=== PATIENT | female | born 1990 | race Caucasian/White ===

== ENCOUNTER 2016-08-05 17:59 | Observation (INO) | payer OTHER ==
[2016-08-05] MEDS ORDERED: diphenhydrAMINE 50 MG/ML 1 ML VIAL IVP STA (19:38)
[2016-08-05] MEDS ORDERED: SODIUM CHLORIDE 0.9% 2,000 ML IV STA (19:38)
[2016-08-05] MEDS ORDERED: METOCLOPRAMIDE 5 MG/ML 2 ML VIAL IVP STA (19:38)
[2016-08-05] MEDS ORDERED: KETOROLAC 30 MG/ML 1 ML VIAL IVP STA (19:39)
[2016-08-05 20:14] LABS: Basophils % (A) 0 %; CH 30.1; CHCM 35.4; Eosinophils % (A) 0 %; HCT 40.7 % (34.0-46.0); HDW 2.54; HGB 14.2 gm/dL (11.4-16.0); Luc # (Auto) 0.17; Luc % (Auto) 1; Lymphocytes # (A) 2.3 k/uL (1.0-4.8); Lymphocytes % (A) 19 %; MCH 29.7 pg (25.0-35.0); MCHC 34.9 g/dL (31.0-37.0); Mean Platelet Volume 6.8; Monocytes # (A) 0.4 k/uL (0-1.0); Monocytes % (A) 3 %; Neutrophils % (A) 76 %; RBC 4.78 m/uL (3.80-5.40); RDW 13.2 % (11.5-15.5); WBC 11.9 k/uL (3.8-10.6); WBC (Perox) 12.05
[2016-08-05 20:23] LABS: Amorphous Sediment,Urine Rare /hpf; Appearance,Urine Cloudy (Clear); Bilirubin,Urine Negative (Negative); Glucose,Urine (UA) Negative (Negative); Ketones,Urine 1+ (Negative); Leukocyte Esterase,Urine Negative (Negative); Mucus,Urine Occasional /hpf; Nitrite,Urine Negative (Negative); PH, Urine 5.5 (5.0-8.0); Particle Count 4897; Protein,Urine Trace (Negative); RBC,Urine <1 /hpf (0-5); Specific Gravity,Urine 1.018 (1.001-1.035); Squamous Epithelial Cell,Urine 1 /hpf (0-4); UA Billing (MACRO vs. MICRO) MICRO; Urobilinogen,Urine <2.0 mg/dL (<2.0); WBC,Urine 2 /hpf (0-5)
[2016-08-05 20:29] LABS: ALT 28 U/L (9-52); AST 28 U/L (14-36); Alkaline Phosphatase 59 U/L (38-126); Amylase 80 U/L (30-110); Anion Gap 12 mmol/L; Blood Urea Nitrogen 12 mg/dL (7-17); Calcium 9.5 mg/dL (8.4-10.2); Carbon Dioxide 22 mmol/L (22-30); Chloride 106 mmol/L (98-107); Glucose 92 mg/dL (74-99); Non-African American GFR(MDRD) >60 (>60 ml/min/1.73 sqM); Potassium 4.2 mmol/L (3.5-5.1); Sodium 140 mmol/L (137-145); Total Bilirubin 0.6 mg/dL (0.2-1.3); Total Protein 7.5 g/dL (6.3-8.2)
[2016-08-05] MEDS ORDERED: LORazepam 2 MG/ML SYRINGE IV STA (20:31)
--- NOTE | 2016-08-05 20:32 | ED ---
Nausea/Vomiting/Diarrhea HPI - General Chief complaint: Nausea/Vomiting/Diarrhea Stated complaint: Vomiting Time Seen by Provider: 08/05/16 19:29 Source: patient, RN notes reviewed, old records reviewed Mode of arrival: ambulatory Limitations: no limitations - History of Present Illness Initial comments: This is a 25-year-old female presenting to emergency Department with chief complaint of a few episodes of vomiting today, fever and chills, headache, and productive cough. Patient's mother reports that she was very sleepy today and had multiple episodes of vomiting last night. Patient's mother reports that she 's had 2 episodes of seizure like episodes at 7 AM at 9am today. Patient's mother reports that she's ever had a seizure before. Patient denies any drug or alcohol use. Patient reports that she just feels very tired and has a headache. Patient states that she's had no head injury or trauma. - Related Data Home Medications Medication Instructions Recorded Confirmed No Known Home Medications [No 08/05/16 08/05/16 Known Home Medications] Allergies Allergy/AdvReac Type Severity Reaction Status Date / Time Penicillins Allergy Severe Rash/Hives Verified 08/05/16 19:30 Review of Systems ROS Statement: Those systems with pertinent positive or pertinent negative responses have been documented in the HPI. ROS Other: All systems not noted in ROS Statement are negative. Past Medical History Past Medical History: No Reported History History of Any Multi-Drug Resistant Organisms: None Reported Past Surgical History: No Surgical Hx Reported Additional Past Surgical History / Comment(s): Left wrist ganglion cystectomy Past Psychological History: No Psychological Hx Reported Smoking Status: Current every day smoker Past Alcohol Use History: Occasional Additional Past Alcohol Use History / Comment(s): Patient is a smoker 23 cigarettes per day. She denies any medical marijuana, marijuana, street drug or alcohol use. Past Drug Use History: None Reported - Past Family History Father Additional Family Medical History / Comment(s): Father is alive at age 40 with no major medical problems. Brother(s) Additional Family Medical History / Comment(s): She has 2 brothers with no major medical problems. She has one sister with scoliosis. Patient has 2 sons that are healthy. Mother Family Medical History: No Reported History Additional Family Medical History / Comment(s): Mother is alive at age 40 with history of arthritis and degenerative disc disease. Patient does not have contact with her mother. General Exam - General Exam Comments Initial Comments: Well-appearing 25-year-old female. No acute distress. Limitations: no limitations Head exam: Present: atraumatic, normocephalic, normal inspection Eye exam: Present: normal appearance, PERRL, EOMI. Absent: scleral icterus, conjunctival injection, periorbital swelling ENT exam: Present: normal exam, mucous membranes moist Neck exam: Present: normal inspection, full ROM, other (No evidence of meningeal signs, negative Kernig and Brudzinski's.). Absent: tenderness, meningismus, lymphadenopathy Respiratory exam: Present: normal lung sounds bilaterally. Absent: respiratory distress, wheezes, rales, rhonchi, stridor Cardiovascular Exam: Present: regular rate, normal rhythm, normal heart sounds. Absent: systolic murmur, diastolic murmur, rubs, gallop, clicks GI/Abdominal exam: Present: soft, normal bowel sounds. Absent: distended, tenderness, guarding, rebound, rigid Extremities exam: Present: normal inspection, full ROM, normal capillary refill. Absent: tenderness, pedal edema, joint swelling, calf tenderness Back exam: Present: normal inspection Neurological exam: Present: alert, oriented X3, CN II-XII intact Psychiatric exam: Present: normal affect, normal mood Skin exam: Present: warm, dry, intact, normal color. Absent: rash Course Vital Signs 08/05/16 08/05/16 08/05/16 18:24 20:30 21:30 Temperature 99.3 F Pulse Rate 68 85 85 Respiratory 20 18 18 Rate Blood Pressure 128/62 120/57 104/62 O2 Sat by Pulse 99 98 97 Oximetry 08/05/16 08/05/16 22:30 23:22 Temperature 98.9 F Pulse Rate 85 87 Respiratory 18 18 Rate Blood Pressure 111/56 120/53 O2 Sat by Pulse 98 97 Oximetry - Reevaluation(s) Reevaluation #1: 08/05/16 20:32 At this time patient had a witnessed tonic-clonic seizure lasting approximately 1 minute. Patient was given 1 mg of Ativan. He was postictal. 08/05/16 21:18 Medical Decision Making - Medical Decision Making This is a 25-year-old female presenting to emergency Department with chief complaint of a few episodes of vomiting today, fever and chills, headache, and productive cough. Patient's mother reports that she was very sleepy today and had multiple episodes of vomiting last night. Patient's mother reports that she 's had 2 episodes of seizure like episodes at 7 AM at 9am today. Patient's mother reports that she's ever had a seizure before. Patient denies any drug or alcohol use. Patient reports that she just feels very tired and has a headache. Patient states that she's had no head injury or trauma. Patient first arrives to emergency Department did not disclose any information of seizures. However 20 minutes after being examined she did have a tonic- clonic seizure that was witnessed by Dr. Berumen. Patient was given 1 mg of Ativan and subsided. Patient was postictal for approximately 30-[address] brain was performed as well as blood work. Patient does have mild leukocytosis of 11.9. Patient has no neck tenderness or meningeal signs. Patient's lungs are clear to auscultation, abdominal exam was benign. CAT scan performed of brain negative for any acute process. Chest x-ray and KUB are also negative. Patient case was discussed with Dr. Lemos. He recommends we keep the patient for IV fluids and monitoring as is the new onset seizure. Patient will be admitted to Dr. Barron. Patient will have neurology consult and an EEG in the morning. - Lab Data Result diagrams: 08/05/16 20:00 08/05/16 20:00 Lab Results 08/05/16 08/05/16 08/05/16 Range/Units 20:00 20:00 20:00 WBC 11.9 H (3.8-10.6) k/uL RBC 4.78 (3.80-5.40) m/uL Hgb 14.2 (11.4-16.0) gm/dL Hct 40.7 (34.0-46.0) % MCV 85.0 (80.0-100.0) fL MCH 29.7 (25.0-35.0) pg MCHC 34.9 (31.0-37.0) g/dL RDW 13.2 (11.5-15.5) % Plt Count 264 (150-450) k/uL Neutrophils % 76 % Lymphocytes % 19 % Monocytes % 3 % Eosinophils % 0 % Basophils % 0 % Neutrophils # 9.0 H (1.3-7.7) k/uL Lymphocytes # 2.3 (1.0-4.8) k/uL Monocytes # 0.4 (0-1.0) k/uL Eosinophils # 0.0 (0-0.7) k/uL Basophils # 0.0 (0-0.2) k/uL Sodium 140 (137-145) mmol/L Potassium 4.2 (3.5-5.1) mmol/L Chloride 106 (98-107) mmol/L Carbon Dioxide 22 (22-30) mmol/L Anion Gap 12 mmol/L BUN 12 (7-17) mg/dL Creatinine 0.69 (0.52-1.04) mg/dL Est GFR (MDRD) Af Amer >60 (>60 ml/min/1.73 sqM) Est GFR (MDRD) Non-Af >60 (>60 ml/min/1.73 sqM) Glucose 92 (74-99) mg/dL Calcium 9.5 (8.4-10.2) mg/dL Phosphorus 4.0 (2.5-4.5) mg/dL Magnesium 1.9 (1.6-2.3) mg/dL Total Bilirubin 0.6 (0.2-1.3) mg/dL AST 28 (14-36) U/L ALT 28 (9-52) U/L Alkaline Phosphatase 59 (38-126) U/L Total Protein 7.5 (6.3-8.2) g/dL Albumin 4.4 (3.5-5.0) g/dL Amylase 80 (30-110) U/L Lipase 98 (23-300) U/L Urine Color Urine Appearance (Clear) Urine pH (5.0-8.0) Ur Specific [place] (1.001-1.035) Urine Protein (Negative) Urine Glucose (UA) (Negative) Urine Ketones (Negative) Urine Blood (Negative) Urine Nitrite (Negative) Urine Bilirubin (Negative) Urine Urobilinogen (<2.0) mg/dL Ur Leukocyte Esterase (Negative) Urine RBC (0-5) /hpf Urine WBC (0-5) /hpf Ur Squamous Epith Cells (0-4) /hpf Amorphous Sediment (None) /hpf Urine Mucus (None) /hpf Urine HCG, Qual (Not Detectd) Urine Opiates Screen (NotDetected) Ur Oxycodone Screen (NotDetected) Urine Methadone Screen (NotDetected) Ur Propoxyphene Screen (NotDetected) Ur Barbiturates Screen (NotDetected) U Tricyclic Antidepress (NotDetected) Ur Phencyclidine Scrn (NotDetected) Ur Amphetamines Screen (NotDetected) U Methamphetamines Scrn (NotDetected) U Benzodiazepines Scrn (NotDetected) Urine Cocaine Screen (NotDetected) U Marijuana (THC) Screen (NotDetected) 08/05/16 08/05/16 08/05/16 Range/Units 20:05 20:05 20:40 WBC (3.8-10.6) k/uL RBC (3.80-5.40) m/uL Hgb (11.4-16.0) gm/dL Hct (34.0-46.0) % MCV (80.0-100.0) fL MCH (25.0-35.0) pg MCHC (31.0-37.0) g/dL RDW (11.5-15.5) % Plt Count (150-450) k/uL Neutrophils % % Lymphocytes % % Monocytes % % Eosinophils % % Basophils % % Neutrophils # (1.3-7.7) k/uL Lymphocytes # (1.0-4.8) k/uL Monocytes # (0-1.0) k/uL Eosinophils # (0-0.7) k/uL Basophils # (0-0.2) k/uL Sodium (137-145) mmol/L Potassium (3.5-5.1) mmol/L Chloride (98-107) mmol/L Carbon Dioxide (22-30) mmol/L Anion Gap mmol/L BUN (7-17) mg/dL Creatinine (0.52-1.04) mg/dL Est GFR (MDRD) Af Amer (>60 ml/min/1.73 sqM) Est GFR (MDRD) Non-Af (>60 ml/min/1.73 sqM) Glucose (74-99) mg/dL Calcium (8.4-10.2) mg/dL Phosphorus (2.5-4.5) mg/dL Magnesium (1.6-2.3) mg/dL Total Bilirubin (0.2-1.3) mg/dL AST (14-36) U/L ALT (9-52) U/L Alkaline Phosphatase (38-126) U/L Total Protein (6.3-8.2) g/dL Albumin (3.5-5.0) g/dL Amylase (30-110) U/L Lipase (23-300) U/L Urine Color Yellow Urine Appearance Cloudy H (Clear) Urine pH 5.5 (5.0-8.0) Ur Specific [place] 1.018 (1.001-1.035) Urine Protein Trace H (Negative) Urine Glucose (UA) Negative (Negative) Urine Ketones 1+ H (Negative) Urine Blood Small H (Negative) Urine Nitrite Negative (Negative) Urine Bilirubin Negative (Negative) Urine Urobilinogen <2.0 (<2.0) mg/dL Ur Leukocyte Esterase Negative (Negative) Urine RBC <1 (0-5) /hpf Urine WBC 2 (0-5) /hpf Ur Squamous Epith Cells 1 (0-4) /hpf Amorphous Sediment Rare H (None) /hpf Urine Mucus Occasional H (None) /hpf Urine HCG, Qual Not Detected (Not Detectd) Urine Opiates Screen Not Detected (NotDetected) Ur Oxycodone Screen Not Detected (NotDetected) Urine Methadone Screen Not Detected (NotDetected) Ur Propoxyphene Screen Not Detected (NotDetected) Ur Barbiturates Screen Not Detected (NotDetected) U Tricyclic Antidepress Not Detected (NotDetected) Ur Phencyclidine Scrn Not Detected (NotDetected) Ur Amphetamines Screen Not Detected (NotDetected) U Methamphetamines Scrn Not Detected (NotDetected) U Benzodiazepines Scrn Not Detected (NotDetected) Urine Cocaine Screen Not Detected (NotDetected) U Marijuana (THC) Screen Detected H (NotDetected) - Radiology Data Radiology results: report reviewed Normal unenhanced CT of the brain. KUB shows a nonacute abdomen. No acute changes. Chest x-ray is normal. No evidence of any acute changes. Disposition Clinical Impression: New onset seizure, Vomiting Disposition: ADMITTED IP TO THIS [facility] Condition: Good Time of Disposition: 22:16
--- NOTE | 2016-08-05 21:14 | CT ---
EXAMINATION TYPE: CT brain wo con DATE OF EXAM: 08/05/2016 COMPARISON: NONE HISTORY: Seizure today. No history of seizures. CT DLP: 954.10 mGycm Automated exposure control for dose reduction was used. FINDINGS: Ventricles and sulci appear normal. There is no mass effect nor midline shift. There is no sign of in tracranial hemorrhage. The calvarium is intact. IMPRESSION: Normal unenhanced head CT scan.
--- NOTE | 2016-08-05 21:29 | XR ---
EXAMINATION TYPE: XR chest 2V DATE OF EXAM: 08/05/2016 COMPARISON: 02/22/2015 HISTORY: Seizure TECHNIQUE: Frontal and lateral views of the chest are obtained. FINDINGS: Heart and mediastinum are normal. Lungs are clear. Diaphragm bony thorax and soft tissues appear normal. IMPRESSION: Normal chest. No change.
--- NOTE | 2016-08-05 21:30 | XR ---
EXAMINATION TYPE: XR KUB DATE OF EXAM: 08/05/2016 COMPARISON: 08/09/2013 HISTORY: Abdominal pain TECHNIQUE: Single view FINDINGS: Bowel gas pattern is normal. There is no sign of intestinal obstruction or pneumoperitoneum . Fecal pattern is normal. There are no pathologic calcifications. IMPRESSION: Nonacute abdomen. No change.
[2016-08-05] MEDS ORDERED: ONDANSETRON 4 MG/2 ML VIAL IVP PRN (22:16)
[2016-08-05] MEDS ORDERED: ACETAMINOPHEN TAB 325 MG TAB PO PRN (22:16)
[2016-08-05] MEDS ORDERED: NALOXONE 0.4 MG/ML 1 ML VIAL IV PRN (22:16)
[2016-08-05] MEDS ORDERED: LORazepam 2 MG/ML SYRINGE IV PRN (22:20)
[2016-08-05 22:40] LABS: Magnesium 1.9 mg/dL (1.6-2.3)
[2016-08-05] MEDS: SODIUM CHLORIDE 0.45% 1,000 ML IV SCH (23:24)
[2016-08-06] MEDS: SODIUM CHLORIDE 0.45% 1,000 ML IV SCH ×2 (06:27→17:36)
[2016-08-06] MEDS ORDERED: PANTOPRAZOLE 40 MG/10 ML VIAL IV SCH (09:00)
--- NOTE | 2016-08-06 11:40 | MR ---
EXAMINATION TYPE: MR brain wo/w con DATE OF EXAM: 08/06/2016 COMPARISON: CT brain from yesterday. HISTORY: New onset seizure. TECHNIQUE: Multiplanar, multisequence images of the brain and brainstem is performed without and with IV contras t, utilizing 10 mL intravenous MultiHance . FINDINGS: Diffusion weighted images demonstrate no evidence of a recent infarct or other diffusion ab normality. There is no extra-axial fluid collection or significant white matter signal abnormality. The ventricular system and cisternal spaces are normal in size and appearance. The brain volume is age appropriate. T2 coronal weighted images show hippocampal gyri to appear symmetric and felt within normal limits. Midline structures demonstrate normal morphology. The craniocervical junction appears within normal limits. Post contrast images demonstrate no abnormal enhancement. The dural venous sinuses appear pa tent. The visualized sinuses are clear and the globes are intact. IMPRESSION: Unremarkable study. No significant finding is seen to account for patient's symptoms.
[2016-08-06] MEDS ORDERED: VANCOMYCIN 1,000 MG in SODIUM CHLORIDE 0.9% 250 ML IVPB STA (13:10)
[2016-08-06] MEDS ORDERED: IV VANCOMYCIN PER PHARMACY 1 EACH MISC MISCELLANE PRN (13:23)
[2016-08-06] MEDS ORDERED: SODIUM CHLORIDE 0.9% IV ONE (14:00)
[2016-08-06] MEDS ORDERED: ACYCLOVIR SODIUM IV ONE (14:00)
[2016-08-06] MEDS ORDERED: levETIRAcetam IV 1,000 MG in SALINE 1 100ML.BAG IVPB SCH (14:00)
[2016-08-06 14:49] VITALS: BP 105/55; PULSE 64; RESP 18; TEMP 97.2
[2016-08-06] MEDS ORDERED: levETIRAcetam IV 750 MG in SODIUM CHLORIDE 0.9% 100 ML IVPB SCH (15:00)
--- NOTE | 2016-08-06 15:40 | P.CNNES ---
History of Present Illness Consult date: 08/06/16 Requesting physician: Ciaar Barron Reason for Consult: New onset seizure Chief complaint: Altered mental status History of Present Illness: Patient is a 25-year-old female is being consult on by neurology after the patient was observed having active seizure in the ED by ED physician. Patient was originally transported to the ED after episodes of vomiting, fever, chills, headache and productive cough. Patient's mother reported that she was sleepy and had multiple episodes of vomiting within the last 36 hours. Patient did have 2 seizure-like episodes while at home prior to transport. Patient's mother denied ED staff that the patient had any seizure history. Patient did have positive UA results for THC. Patient also had elevated WBCs and her CBC results. Since the patient seizure-like activity in the ED, since being transferred to general medical floor, the patient has not had any seizure activity per nursing. On contact, the patient was supine in bed sleeping. When awoken, patient was alert and oriented 3, no acute distress. Patient denied headache today. Review of Systems Systems not noted previously in HPI or negative. Past Medical History Past Medical History: No Reported History History of Any Multi-Drug Resistant Organisms: None Reported Past Surgical History: No Surgical Hx Reported Additional Past Surgical History / Comment(s): Left wrist ganglion cystectomy Past Anesthesia/Blood Transfusion Reactions: No Reported Reaction Past Psychological History: No Psychological Hx Reported Smoking Status: Current every day smoker Past Alcohol Use History: Occasional Additional Past Alcohol Use History / Comment(s): Patient is a smoker 23 cigarettes per day. She denies any medical marijuana, marijuana, street drug or alcohol use. UA positive for THC. Past Drug Use History: None Reported Additional Drug Use History / Comment(s): UA positive for THC. - Past Family History Father Additional Family Medical History / Comment(s): Father is alive at age 40 with no major medical problems. Brother(s) Additional Family Medical History / Comment(s): She has 2 brothers with no major medical problems. She has one sister with scoliosis. Patient has 2 sons that are healthy. Mother Additional Family Medical History / Comment(s): Mother is alive at age 40 with history of arthritis and degenerative disc disease. Patient does not have contact with her mother. Medications and Allergies Home Medications Medication Instructions Recorded Confirmed Type No Known Home Medications [No 08/05/16 08/05/16 History Known Home Medications] Allergies Allergy/AdvReac Type Severity Reaction Status Date / Time Penicillins Allergy Severe Rash/Hives Verified 08/05/16 19:30 Physical Examination - Vital Signs Vital Signs: Vital Signs Temp Pulse Pulse Resp BP BP Pulse Ox 08/06/16 14:48 97.2 F L 64 18 105/55 98 08/06/16 09:00 96.9 F L 60 16 92/50 99 08/06/16 01:05 100.8 F H 82 18 104/57 97 08/06/16 00:07 101.2 F H 08/05/16 23:22 98.9 F 87 18 120/53 97 08/05/16 22:30 85 18 111/56 98 08/05/16 21:30 85 18 104/62 97 08/05/16 20:30 85 18 120/57 98 08/05/16 18:24 99.3 F 68 20 128/62 99 Intake and Output 08/06/16 08/06/16 08/06/16 06:59 14:59 22:59 Other: # Voids 3 1 Constitutional: AOx3, cooperative HEENT: NC/AT, no facial asymmetry is seen. Throat: Supple, no masses Respiratory: No increased work of breathing Cardiac: Regular rate and Rhythm GI: non tender, non distended Musculoskeletal: Radio Equipment Installer strengths are equal bilaterally 5/5, Lower extremity strengths are equal bilaterally at 5/5. Neurological: CN II-XII in tact, patient was AOx3, speech and language are normal, no unilateralizing weakness, no seizure activity note on physical exam. Sensation was normal. Integementary: no rash, no erythema Psychiatric: mood and affect appropriate Results Noteworthy: Elevated WBC, UA positive for THC. - Laboratory Findings CBC and BMP: 08/05/16 20:00 08/05/16 20:00 Abnormal Lab Findings: Abnormal Labs 08/05/16 08/05/16 08/05/16 20:00 20:05 20:40 WBC 11.9 H Neutrophils # 9.0 H Urine Appearance Cloudy H Urine Protein Trace H Urine Ketones 1+ H Urine Blood Small H Amorphous Sediment Rare H Urine Mucus Occasional H U Marijuana (THC) Screen Detected H Assessment and Plan (1) Encephalopathy acute Status: Acute (2) New onset seizure Status: Acute Plan: 1. Encephalopathy 2. New-onset seizure On physical exam, the patient is unremarkable for any neurological changes. Patient is noted to have elevated white blood cell count as well as THC in her urinalysis. Current MRI of the brain noted as unremarkableno correlation for symptoms. Based on the patient's presentation, history of illness and seizure- like activity we will request following diagnostic workup to include: Ordered/status: EEGOrdered continue seizure precautionsnotify neurology of seizure-like activity occurs neuro checks every shift. Continue Keppra 750 twice a dayIVP Lumbar puncture already ordered by another provider Continue underlying management of elevated WBCs Neurology will continue to follow and provide further updates as needed or warranted. Please feel free to contact our office with any questions I discussed the patient's pertinent medical information with Dr. Drake. He agrees with the plan of care as implemented.
--- NOTE | 2016-08-06 15:53 | P.HPIM ---
History of Present Illness H&P Date: 08/06/16 Chief Complaint: Fever seizures his is a 25-year-old female. Her primary care physician of Dr. Summers. She has a past history for depression and tobacco use and dependence. Otherwise she is in her usual state of health until half a week ago where she started having fever, vomiting, chills, increasing sleepiness dizziness drowsiness, she has had a headache since she was age 9 and was diagnosed to have migraines, she is not on any migraine prophylaxis or migraine treatments. She was subsequently seen in the emergency room secondary to 2 episodes of seizure 1 at 7:00 in the morning and 1 at 9 PM the one at 9 PM was witnessed by the emergency room staff. She has foamy mouth, fluttering eyeballs lasting 1 minute, and hyperextension of both upper extremities, lower extremities, and no loss of bladder or bowel control, patient has post ictal hypersomnia, she was subsequently seen in the emergency room and was admitted for the seizure episode. However I was not notified of the fever occurrences, one the floor she had a temperature of 101 and this started at around 12 midnight, prior to this there was no documentation of fever except for T-max in the emergency room of 99.3 . Consults were made with Dr. Drake from neurology, Dr. Leiva from infectious disease, anesthesia with Dr. Scott c application developer for this weekend, to perform an emergency lumbar puncture for cultures and cytology. Patient will be empirically started on vancomycin, Rocephin, and acyclovir, discuss with Dr. Leiva infectious disease. Influenza a and B PCR HSV 1 and 2, Lyme by PCR, and COLUMBA along with CSF cultures were requested, LP is being prepared to be performed in few hrs Mild brain failed to reveal any abnormalities, EEG of the brain was requeste urine drug screen positive for marijuana UCG negative wbc 11.9 Review of Systems Constitutional: Reports as per HPI, Reports chills, Reports fever, Denies anorexia, Denies chronic headaches, Denies chronic pain, Denies daytime sleepiness, Denies fatigue, Denies lethargy, Denies malaise, Denies night sweats , Denies poor appetite, Denies sweats, Denies weakness, Denies weight gain, Denies weight loss Ears, nose, mouth and throat: Reports as per HPI, Denies ant. neck pain, Denies bleeding gums, Denies dental pain, Denies dysphagia, Denies epistaxis, Denies headache, Denies hoarseness, Denies mouth pain, Denies nasal congestion, Denies nasal discharge, Denies neck fullness/pressure, Denies neck lump, Denies nose pain, Denies odynophagia, Denies post-nasal drip, Denies sinus pain, Denies sinus pressure, Denies swelling in mouth, Denies swelling in throat, Denies sore throat, Denies vertigo, Denies voice changes Cardiovascular: Reports as per HPI, Denies chest pain, Denies claudication, Denies decreased exercise tolerance, Denies dyspnea on exertion, Denies edema, Denies high blood pressure, Denies irregular heart beat, Denies leg edema, Denies lightheadedness, Denies orthopnea, Denies palpitations, Denies paroxysmal nocturnal dyspnea, Denies phlebitis, Denies rapid heart beat, Denies shortness of breath, Denies syncope Gastrointestinal: Reports as per HPI, Denies abdominal pain, Denies belching, Denies bloating, Denies BRBPR, Denies change in bowel habits, Denies coffee ground emesis, Denies constipation, Denies diarrhea, Denies dyspepsia, Denies early satiety, Denies excessive gas, Denies heartburn, Denies hematemesis, Denies hematochezia, Denies indigestion, Denies jaundice, Denies lactose intolerance, Denies loss of appetite, Denies melena, Denies nausea, Denies vomiting Genitourinary: Reports as per HPI, Denies abnormal vaginal bleeding, Denies decreased libido, Denies difficulty conceiving, Denies difficulty voiding, Denies dysmenorrhea, Denies dyspareunia, Denies dysuria, Denies flank pain, Denies genital sores, Denies hematuria, Denies hot flashes, Denies incomplete emptying, Denies kidney stones, Denies menorrhagia, Denies mixed incontinence, Denies nocturia, Denies pelvic pain, Denies post void dribbling, Denies , Denies prolapse symptoms, Denies stress incontinence, Denies urge incontinence , Denies urgency, Denies urinary frequency, Denies vaginal discharge, Denies vaginal dryness, Denies vaginal itching, Denies vaginal odor Musculoskeletal: Reports as per HPI Integumentary: Reports as per HPI, Denies acne, Denies boils, Denies brittle nails, Denies change in hair/nails, Denies color changes, Denies darkening of skin, Denies depigmentation, Denies dryness, Denies foot/leg ulcers, Denies growths, Denies hirsutism, Denies lesions, Denies onychomycosis, Denies pruritus , Denies rash, Denies sores, Denies striae, Denies unusual bruising, Denies wounds Neurological: Reports as per HPI, Reports change in mentation, Reports convulsions, Reports headaches, Reports visual changes, Denies aphasia, Denies ataxia, Denies balance difficulties, Denies burning pain, Denies change in smell /taste, Denies change in speech, Denies confusion, Denies double vision, Denies gait dysfunction, Denies head injury, Denies hearing difficulties, Denies lack of coordination, Denies loss of vision, Denies memory loss, Denies migraines, Denies motor disturbance, Denies numbness, Denies paralysis, Denies paresthesias , Denies seizures, Denies sensory deficit, Denies spasticity, Denies syncope, Denies tic, Denies tingling, Denies transient paralysis, Denies tremors, Denies vertigo, Denies weakness Psychiatric: Reports as per HPI, Denies anhedonia, Denies anxiety, Denies anxiety attacks, Denies change in appetite, Denies change in libido, Denies change in sleep habits, Denies confusion, Denies depression, Denies difficulty concentrating, Denies disorientation, Denies hallucinations, Denies hopelessness , Denies hypersomnia, Denies insomnia, Denies irritability, Denies memory loss, Denies mood swings, Denies paranoia, Denies sadness/tearfulness, Denies sleep disturbances, Denies suicidal ideation Endocrine: Reports as per HPI, Denies cold intolerance, Denies deepening of the voice, Denies excessive sweating, Denies excessive thirst, Denies fatigue, Denies flushing, Denies heat intolerance, Denies high blood sugars, Denies increase in ring/shoe/hat size, Denies low blood sugars, Denies nocturia, Denies palpitations, Denies polydipsia, Denies polyphagia, Denies polyuria, Denies proptosis, Denies recent glucocorticoid use, Denies thyroid mass, Denies weight change Hematologic/Lymphatic: Reports as per HPI, Denies easy bleeding, Denies easy bruising, Denies lymphadenopathy, Denies lymphedema, Denies thrombophilia Allergic/Immunologic: Reports as per HPI, Denies allergic rhinitis, Denies anaphylaxis, Denies angioedema, Denies gluten intolerance, Denies persistent infections, Denies seasonal allergies, Denies urticaria, Denies wheezing Past Medical History Past Medical History: No Reported History History of Any Multi-Drug Resistant Organisms: None Reported Past Surgical History: No Surgical Hx Reported Additional Past Surgical History / Comment(s): Left wrist ganglion cystectomy Past Anesthesia/Blood Transfusion Reactions: No Reported Reaction Past Psychological History: No Psychological Hx Reported Smoking Status: Current every day smoker Past Alcohol Use History: Occasional Additional Past Alcohol Use History / Comment(s): Patient is a smoker 23 cigarettes per day. She denies any medical marijuana, marijuana, street drug or alcohol use. UA positive for THC. Past Drug Use History: None Reported Additional Drug Use History / Comment(s): UA positive for THC. - Past Family History Father Additional Family Medical History / Comment(s): Father is alive at age 40 with no major medical problems. Brother(s) Additional Family Medical History / Comment(s): She has 2 brothers with no major medical problems. She has one sister with scoliosis. Patient has 2 sons that are healthy. Mother Family Medical History: No Reported History Additional Family Medical History / Comment(s): Mother is alive at age 40 with history of arthritis and degenerative disc disease. Patient does not have contact with her mother. Medications and Allergies Home Medications Medication Instructions Recorded Confirmed Type No Known Home Medications [No 08/05/16 08/05/16 History Known Home Medications] Allergies Allergy/AdvReac Type Severity Reaction Status Date / Time Penicillins Allergy Severe Rash/Hives Verified 08/05/16 19:30 Physical Exam Vitals: Vital Signs Temp Pulse Pulse Resp BP BP Pulse Ox 08/06/16 14:48 97.2 F L 64 18 105/55 98 08/06/16 09:00 96.9 F L 60 16 92/50 99 08/06/16 01:05 100.8 F H 82 18 104/57 97 08/06/16 00:07 101.2 F H 08/05/16 23:22 98.9 F 87 18 120/53 97 08/05/16 22:30 85 18 111/56 98 08/05/16 21:30 85 18 104/62 97 08/05/16 20:30 85 18 120/57 98 08/05/16 18:24 99.3 F 68 20 128/62 99 Intake and Output 08/06/16 08/06/16 08/06/16 06:59 14:59 22:59 Other: # Voids 3 1 - Constitutional General appearance: cooperative, no acute distress, thin - EENT Eyes: anicteric sclerae, EOMI, PERRLA, dentition normal, normal appearance ENT: hard of hearing, NA/AT, normal oropharynx - Neck Neck: no lymphadenopathy, normal ROM, no other, no rigidity, no stridor, no thyromegaly - Respiratory Respiratory: bilateral: CTA, negative: diminished, dullness, rales, rhonchi - Cardiovascular Rhythm: regular Heart sounds: normal: S1, S2 Abnormal Heart Sounds: no systolic murmur, no diastolic murmur, no rub, no S3 Gallop, no S4 Gallop, no click, no other - Gastrointestinal General gastrointestinal: normal bowel sounds, soft - Integumentary Integumentary: normal, normal turgor - Musculoskeletal Musculoskeletal: gait normal, strength equal bilaterally - Psychiatric Psychiatric: A&O x's 3, appropriate affect, intact judgment & insight Results CBC & Chem 7: 08/05/16 20:00 08/05/16 20:00 Labs: Abnormal Lab Results - Last 24 Hours (Table) 08/05/16 08/05/16 08/05/16 Range/Units 20:00 20:05 20:40 WBC 11.9 H (3.8-10.6) k/uL Neutrophils # 9.0 H (1.3-7.7) k/uL Urine Appearance Cloudy H (Clear) Urine Protein Trace H (Negative) Urine Ketones 1+ H (Negative) Urine Blood Small H (Negative) Amorphous Sediment Rare H (None) /hpf Urine Mucus Occasional H (None) /hpf U Marijuana (THC) Screen Detected H (NotDetected) Laboratory Results WBC 11.9 k/uL (3.8-10.6) H 08/05/16 20:00 RBC 4.78 m/uL (3.80-5.40) 08/05/16 20:00 Hgb 14.2 gm/dL (11.4-16.0) 08/05/16 20:00 Hct 40.7 % (34.0-46.0) 08/05/16 20:00 MCV 85.0 fL (80.0-100.0) 08/05/16 20:00 MCH 29.7 pg (25.0-35.0) 08/05/16 20:00 MCHC 34.9 g/dL (31.0-37.0) 08/05/16 20:00 RDW 13.2 % (11.5-15.5) 08/05/16 20:00 Plt Count 264 k/uL (150-450) 08/05/16 20:00 Neutrophils % 76 % 08/05/16 20:00 Lymphocytes % 19 % 08/05/16 20:00 Monocytes % 3 % 08/05/16 20:00 Eosinophils % 0 % 08/05/16 20:00 Basophils % 0 % 08/05/16 20:00 Neutrophils # 9.0 k/uL (1.3-7.7) H 08/05/16 20:00 Lymphocytes # 2.3 k/uL (1.0-4.8) 08/05/16 20:00 Monocytes # 0.4 k/uL (0-1.0) 08/05/16 20:00 Eosinophils # 0.0 k/uL (0-0.7) 08/05/16 20:00 Basophils # 0.0 k/uL (0-0.2) 08/05/16 20:00 Sodium 140 mmol/L (137-145) 08/05/16 20:00 Potassium 4.2 mmol/L (3.5-5.1) 08/05/16 20:00 Chloride 106 mmol/L (98-107) 08/05/16 20:00 Carbon Dioxide 22 mmol/L (22-30) 08/05/16 20:00 Anion Gap 12 mmol/L 08/05/16 20:00 BUN 12 mg/dL (7-17) 08/05/16 20:00 Creatinine 0.69 mg/dL (0.52-1.04) 08/05/16 20:00 Est GFR (MDRD) Af Amer >60 (>60 ml/min/1.73 sqM) 08/05/16 20:00 Est GFR (MDRD) Non-Af >60 (>60 ml/min/1.73 sqM) 08/05/16 20:00 Glucose 92 mg/dL (74-99) 08/05/16 20:00 Calcium 9.5 mg/dL (8.4-10.2) 08/05/16 20:00 Phosphorus 4.0 mg/dL (2.5-4.5) 08/05/16 20:00 Magnesium 1.9 mg/dL (1.6-2.3) 08/05/16 20:00 Total Bilirubin 0.6 mg/dL (0.2-1.3) 08/05/16 20:00 AST 28 U/L (14-36) 08/05/16 20:00 ALT 28 U/L (9-52) 08/05/16 20:00 Alkaline Phosphatase 59 U/L (38-126) 08/05/16 20:00 Total Protein 7.5 g/dL (6.3-8.2) 08/05/16 20:00 Albumin 4.4 g/dL (3.5-5.0) 08/05/16 20:00 Amylase 80 U/L (30-110) 08/05/16 20:00 Lipase 98 U/L (23-300) 08/05/16 20:00 Urine Color Yellow 08/05/16 20:05 Urine Appearance Cloudy (Clear) H 08/05/16 20:05 Urine pH 5.5 (5.0-8.0) 08/05/16 20:05 Ur Specific [place] 1.018 (1.001-1.035) 08/05/16 20:05 Urine Protein Trace (Negative) H 08/05/16 20:05 Urine Glucose (UA) Negative (Negative) 08/05/16 20:05 Urine Ketones 1+ (Negative) H 08/05/16 20:05 Urine Blood Small (Negative) H 08/05/16 20:05 Urine Nitrite Negative (Negative) 08/05/16 20:05 Urine Bilirubin Negative (Negative) 08/05/16 20:05 Urine Urobilinogen <2.0 mg/dL (<2.0) 08/05/16 20:05 Ur Leukocyte Esterase Negative (Negative) 08/05/16 20:05 Urine RBC <1 /hpf (0-5) 08/05/16 20:05 Urine WBC 2 /hpf (0-5) 08/05/16 20:05 Ur Squamous Epith Cells 1 /hpf (0-4) 08/05/16 20:05 Amorphous Sediment Rare /hpf (None) H 08/05/16 20:05 Urine Mucus Occasional /hpf (None) H 08/05/16 20:05 Urine HCG, Qual Not Detected (Not Detectd) 08/05/16 20:05 Urine Opiates Screen Not Detected (NotDetected) 08/05/16 20:40 Ur Oxycodone Screen Not Detected (NotDetected) 08/05/16 20:40 Urine Methadone Screen Not Detected (NotDetected) 08/05/16 20:40 Ur Propoxyphene Screen Not Detected (NotDetected) 08/05/16 20:40 Ur Barbiturates Screen Not Detected (NotDetected) 08/05/16 20:40 U Tricyclic Antidepress Not Detected (NotDetected) 08/05/16 20:40 Ur Phencyclidine Scrn Not Detected (NotDetected) 08/05/16 20:40 Ur Amphetamines Screen Not Detected (NotDetected) 08/05/16 20:40 U Methamphetamines Scrn Not Detected (NotDetected) 08/05/16 20:40 U Benzodiazepines Scrn Not Detected (NotDetected) 08/05/16 20:40 Urine Cocaine Screen Not Detected (NotDetected) 08/05/16 20:40 U Marijuana (THC) Screen Detected (NotDetected) H 08/05/16 20:40 Thrombosis Risk Factor Assmnt - DVT/VTE Prophylaxis DVT/VTE Prophylaxis: Low risk, early ambulation encouraged - Choose All That Apply Any of the Below Risk Factors Present?: No Other Risk Factors: No Other congenital or acquired thrombophilia - If yes, enter type in comment: No Thrombosis Risk Factor Assessment Level: Very Low Risk Assessment and Plan Plan: 1. Seizures presenting with fever, encephalitis is in the differential, there is no known history of seizure disorder, patient will be seen consultation by Dr. Drake in [facility], lumbar puncture was requested for cultures and HSV, Lyme , COLUMBA, patient was started on Rocephin, vancomycin and Cyclovir at 10 mg every 8 hours, Keppra also was started EEG of the brain,. MRI of the brain failed to reveal any anatomical appearance is including brain tumor and aneurysms 2. Marijuana use, positive urine drug screen 3. Tobacco use patient is offered nicotine patches, 4. Prior history of anxiety depression without any identifiable triggers at this time patient stable not on any home medications for mood. DVT prophylaxis with early ambulation, GI prophylaxis with IV Zantac or Pepcid
[2016-08-06] MEDS ORDERED: cefTRIAXone 2,000 MG in SODIUM CHLORIDE 0.9% 100 ML IVPB SCH (16:00)
[2016-08-06 16:34] LABS: INR 1.1 (<1.1); Prothrombin Time 11.1 sec (9.0-12.0)
[2016-08-06] MEDS ORDERED: VANCOMYCIN 2,250 MG in SODIUM CHLORIDE 0.9% 500 ML IVPB ONE (17:00)
[2016-08-06 17:51] LABS: Glucose,CSF 63 mg/dL (40-70)
[2016-08-06 18:11] LABS: Appearance,CSF Clear
[2016-08-06] MEDS ORDERED: ACYCLOVIR SODIUM 1,000 MG in SODIUM CHLORIDE 0.9% 250 ML IVPB SCH (22:00)
[2016-08-07] MEDS ORDERED: ACYCLOVIR SODIUM 1,000 MG in SODIUM CHLORIDE 0.9% 250 ML IVPB SCH ×2
[2016-08-07] MEDS ORDERED: VANCOMYCIN 2,000 MG in SODIUM CHLORIDE 0.9% 500 ML IVPB SCH ×2 (01:00→05:00)
[2016-08-07] MEDS ORDERED: levETIRAcetam IV 750 MG in SODIUM CHLORIDE 0.9% 100 ML IVPB SCH (03:00)
--- NOTE | 2016-08-07 12:06 | CONS ---
DATE OF CONSULTATION: 08/06/16 REASON FOR CONSULTATION: Fever, headache and question of meningitis. HISTORY OF PRESENT ILLNESS: The patient is a 25-year-old female with a family history positive for seizure disorder. The patient has been brought into the ER at [facility] on 08/05/2016 with chief complaints of apparent two seizure activities that were noticed by family members. patient basically become numb, stiff and did have some jerky movements but no tongue biting or incontinence of bowel or bladder. Patient has been complaining of some frontal headache, dull aching pain about 5 to 6 out of 10 and no radiation. The patient denies any photophobia. No neck rigidity. Denies having any chest pain, shortness of breath or cough. No abdominal pain. No diarrhea. The patient denies any high-grade fever. On admission to hospital patient was afebrile. However, the patient subsequently did spike a fever of 101.2 degrees Fahrenheit for which the patient did have blood cultures obtained. Case was discussed with me by the attending physician concern for possible meningitis encephalitis and LP has been ordered which is pending at time of my evaluation of seeing the patient. REVIEW OF SYSTEMS: CONSTITUTIONAL: Positive for weakness along with fever. EYES: No complaint. ENT: No complaint. RESPIRATORY: No complaint. CARDIOVASCULAR: No complaint. GENITOURINARY: No complaint. GASTROINTESTINAL: No complaint. MUSCULOSKELETAL: No complaint. INTEGUMENT: No complaint. PSYCHOLOGICAL: No complaint. NEUROLOGICAL: As per HPI. PAST MEDICAL HISTORY: No major illnesses. PAST SURGICAL HISTORY: The patient had left wrist cyst removal. SOCIAL HISTORY: The patient is currently an everyday smoker, smokes about two packs of cigarettes per day. Admitted to marijuana use. FAMILY HISTORY: Father with no major illnesses. ALLERGIES: PENICILLIN. Medications currently the patient has been on: 1. Tylenol. 2. Acyclovir. 3. Rocephin. 4. Lamictal. 5. Ativan. 6. Pharmacy to dose, vancomycin. On examination, blood pressure 105/55 with a pulse of 74, temperature 97.2, she is 98% on room air. General description is a middle-age female lying in bed in no distress. No tachypnea or accessory muscles of respiration use. HEENT examination shows no pallor or scleral icterus. Oral mucous membranes dry. NECK: Trachea central. There is no thyromegaly. LUNGS: Unlabored breathing. Clear to auscultation anteriorly. No wheeze or crackle. HEART: S1, S2. Regular rate and rhythm. ABDOMEN: Soft. No tenderness. No guarding or rigidity. EXTREMITIES: No edema of feet. Examination of the skin no rash or mass palpable. NEUROLOGICAL: The patient is awake, alert, oriented x3. No signs of any meningeal irritation. LABS: Hemoglobin is 14.2, white count 11.9 with a BUN of 12, creatinine 0.69, electrolytes have been normal. Liver enzymes are normal. Urine has been negative. Urine drug screen positive for marijuana, influenza A and B has been negative. The patient did have CSF examination, which clear, colorless, WBC, glucose 63 with a protein of 19. DIAGNOSTIC IMPRESSION AND PLAN: Patient admitted to the hospital with a new onset seizures in a patient who did have an MRI of the brain that did not show any acute changes. The patient with history of headache, fever, concern for possible meningitis and encephalitis. However, the patient did have CSF examination, that is essentially clear, making it to be less likely, meningitis or encephalitis. The patient with no other clinical focus of infection. Chest x-ray reported negative. Influenza A and B were negative and urine is negative could be more likely a viral syndrome. PLAN: 1. Agree with discontinuation of the antibiotic as well as antiviral therapy. 2. The patient will closely be watched off antibiotics and if any new fever or any change in clinical condition to reculture her and start on appropriate antibiotic therapy at that point. Thank you for this consultation. Will follow this patient along with you. DELL
--- NOTE | 2016-08-09 08:01 | EEG ---
DATE OF SERVICE: 08/06/2016 INDICATIONS FOR EXAMINATION: Seizure. AGE: 25Y DESCRIPTION OF PROCEDURE: This EEG was performed using a 21 channel digital electroencephalograph following international 10-20 system. DESCRIPTION OF THE RECORDING: From the beginning of the tracing, with the patient's eyes closed, the background rhythm was consisting of 8 Hz alpha frequency in the posterior occipital leads. No obvious asymmetry was seen. Occasional muscle and movement artifacts are seen. Hyperventilation was performed with a minimal buildup of amplitude seen. Again, no pathological waves were elicited. The patient remains awake throughout the tracing. No epileptiform discharges were seen. His EKG lead showed regular rate and rhythm. INTERPRETATION: This awake EEG can be considered within normal limits. There was no asymmetry seen. No epileptiform discharges were noticed. The absence of epileptiform discharges does not rule out the diagnosis of epilepsy, therefore, clinical correlation is recommended.
[2016-08-10 02:37] LABS: Lyme Specimen Source Not Provided
--- NOTE | 2016-08-12 22:35 | P.DS ---
Providers Date of admission: 08/05/16 22:16 Attending physician: Ciara Barron Consults: 08/05/16 22:16 Consult Physician Stat Consulting Provider: Thuy Leiva Consult Reason/Comments: New onset seizure Do you want consulting provider notified?: Yes, Notify in am 08/06/16 13:13 Consult Physician Urgent Consulting Provider: Anesthesia,Services Consult Reason/Comments: LP encephalitis suspected Do you want consulting provider notified?: Yes 08/06/16 13:15 Consult Physician Routine Consulting Provider: Deyvi Drake Consult Reason/Comments: seizure fever Do you want consulting provider notified?: Yes Primary care physician: [facility] Course: Thiss is a 25-year-old female. Her primary care physician of Dr. Summers. She has a past history for depression and tobacco use and dependence. Otherwise she is in her usual state of health until half a week ago where she started having fever, vomiting, chills, increasing sleepiness dizziness drowsiness, she has had a headache since she was age 9 and was diagnosed to have migraines, she is not on any migraine prophylaxis or migraine treatments. She was subsequently seen in the emergency room secondary to 2 episodes of seizure 1 at 7:00 in the morning and 1 at 9 PM the one at 9 PM was witnessed by the emergency room staff. She has foamy mouth, fluttering eyeballs lasting 1 minute, and hyperextension of both upper extremities, lower extremities, and no loss of bladder or bowel control, patient has post ictal hypersomnia, she was subsequently seen in the emergency room and was admitted for the seizure episode. However I was not notified of the fever occurrences, one the floor she had a temperature of 101 and this started at around 12 midnight, prior to this there was no documentation of fever except for T-max in the emergency room of 99.3 . Consults were made with Dr. Drake from neurology, Dr. Leiva from infectious disease, anesthesia with Dr. Scott in school suspension coordinator for this weekend, to perform an emergency lumbar puncture for cultures and cytology. Patient will be empirically started on vancomycin, Rocephin, and acyclovir, discuss with Dr. Leiva infectious disease. Influenza a and B PCR HSV 1 and 2, Lyme by PCR, and COLUM[place] along with CSF cultures were requested, LP is being prepared to be performed in few hrs Mild brain failed to reveal any abnormalities, EEG of the brain was requeste urine drug screen positive for marijuana UCG negative wbc 11.9 through out the night, the nurse reported that the patient wanted to go home agaisnt medical advise after lumbar tap was performed, patient was counceled regarding consequence and implications of AMA, mother picked up daughter home from hospital NO discharge medications NO followup visits made Preliminary DIagnosis 1. Seizures presenting with fever, encephalitis is in the differential, there is no known history of seizure disorder, patient will be seen consultation by Dr. Drake in Dr. Brito, lumbar puncture was requested for cultures and HSV, Lyme , COLUMBA, patient was started on Rocephin, vancomycin and Cyclovir at 10 mg every 8 hours, Keppra also was started EEG of the brain,. MRI of the brain failed to reveal any anatomical appearance is including brain tumor and aneurysms 2. Marijuana use, positive urine drug screen 3. Tobacco use patient is offered nicotine patches, 4. Prior history of anxiety depression without any identifiable triggers at this time patient stable not on any home medications for mood. prognosis on discharge guarded. HOME AMA Patient Condition at Discharge: Good Plan - Discharge Summary New Discharge Prescriptions: No Action No Known Home Medications [No Known Home Medications] Discharge Medication List No Known Home Medications [No Known Home Medications] 08/05/16 [History] Follow up Appointment(s)/Referral(s): Jama Summers DO [Primary Care Provider] - 1-2 days Discharge Disposition: Left Against Medical Advice
--- NOTE | 2016-09-09 08:15 | P.OP ---
Date of Procedure: 08/06/16 Preoperative Diagnosis: Meningitis Postoperative Diagnosis: Meningitis Procedure(s) Performed: Diagnostic lumbar puncture Implants: Anesthesia: local Surgeon: Adrian Scott Condition: critical Indications for Procedure: Operative Findings: Description of Procedure: This is 25 years old female with symptomes suggestive of meningitis , she was evaluated by neurologist ,and diagnostic lumbar puncture requested ,to get cerebrospinal fluid ,for diagnostic purpose, procedure risks and benefits, and alternative discussed with the patient, and she agreed with the proceeding, patient in the procedure room, sitting position, back prepped with chlorhexidine 3, under sterile technique, local infiltration of the skin and subcutaneous tissue with lidocaine 1% 3 mL , using 22-gauge Quincke-type spinal needle , at the L4 5 level interlaminal space , and the needle advanced slowly,there was positive cerebrospinal fluid ,no heme, no paresthesia , a total of 8 mL of cerebrospinal fluid collected in 4 different tubes, then the nreedle was removed, band aide applied, patient tolerated the procedure well without any complications, further management as per primary team
== END 2016-08-06 21:45 | disposition left against medical advice (07) ==
LOC: EC 17:59 → INTOOBSV 22:16 → 4MS4W 22:16
PROVIDERS: ADMIT Family Medicine; ATTEND Family Medicine
DX: G40.89 Other seizures (principal); R05 Cough; R50.9 Fever, unspecified; R11.10 Vomiting, unspecified; R51 Headache; F17.210 Nicotine dependence, cigarettes, uncomplicated; F12.90 Cannabis use, unspecified, uncomplicated; Z88.0 Allergy status to penicillin; Z82.0 Family history of epilepsy and other diseases of the nervous system; D72.829 Elevated white blood cell count, unspecified; Z53.21 Procedure and treatment not carried out due to patient leaving prior to being seen by health care provider
CPT/HCPCS: 96361; 96374; 96375; 99285; 36415; 95819; 62270; 87476; 88108; 84157; 80053; 82945; 82150; 83690; 83735; 84100; 85025; 85610; 89050; 81001; 81025; 87040; 87252; 86038; 80306; 87070; 87205; 87116; 87102; 87206; 87502; 71020; 74000; 70450; 70553; G0378 ×2; J3370; J2060; J1200; J2765; J0133; J0696; J1885; A9577; J1953; C9113; 87529

== ENCOUNTER → 2017-05-31 | Outpatient (CLI) | payer OTHER ==
--- NOTE | 2017-06-01 20:06 | MR ---
EXAMINATION TYPE: MR brain wo/w con DATE OF EXAM: 05/31/2017 COMPARISON: 08/06/2016 HISTORY: 26-year-old female with SEIZURES TECHNIQUE: Multiplanar, multisequence images of the brain and brainstem were acquired before and aft er administration of 5.5 mL IV Gadavist. Diffusion weighted imaging is performed. FINDINGS: No evidence for acute infarction, hemorrhage, mass, mass effect, midline shift, herniation, effacemen t of basal cisterns, or extra-axial fluid collection. The ventricles and sulci are age-appropriate. Major intracranial flow voids are intact. T2/FLAIR weighted sequences show no white matter signal abnormality. There is symmetrical hippocampal volume. No nelson matter heterotopia seen. Midline structures demonstrate normal morphology. The craniocervical junction is normal. Post contrast images demonstrate no evidence of pathologic enhancement. Dural venous sinuses are pat ent. Moderate mucosal thickening within the ethmoid air cells. Small amount of trapped fluid in the left m astoid air cells. Globes are intact. Trace mucosal thickening frontal sinuses. IMPRESSION: 1. No intracranial abnormality seen. 2. Moderate chronic ethmoid sinus disease
== END | disposition home or self-care (01) ==
LOC: RADMRIMAIN 13:25
PROVIDERS: ATTEND Psychiatry & Neurology Pain Medicine
DX: R56.9 Unspecified convulsions (principal); Z88.0 Allergy status to penicillin
CPT/HCPCS: 70553; A9581

== ENCOUNTER 2017-06-24 05:07 | Emergency (ER) | payer OTHER ==
[2017-06-24 05:33] VITALS: RESP 16
[2017-06-24] MEDS ORDERED: SODIUM CHLORIDE 0.9% 1,000 ML IV STA ×2 (05:42→07:12)
[2017-06-24] MEDS ORDERED: SODIUM CHLORIDE 0.9% 500 ML IV STA (05:42)
[2017-06-24] MEDS ORDERED: NALOXONE 0.4 MG/ML 1 ML VIAL IV STA (05:43)
[2017-06-24 05:48] LABS: Glucose,Whole Blood 98 mg/dL (75-99)
[2017-06-24 05:58] LABS: Basophils # (A) 0.1 k/uL (0-0.2); Basophils % (A) 1 %; Eosinophils # (A) 0.3 k/uL (0-0.7); Eosinophils % (A) 3 %; HCT 39.3 % (34.0-46.0); HGB 13.5 gm/dL (11.4-16.0); Lymphocytes # (A) 4.5 k/uL (1.0-4.8); Lymphocytes % (A) 48 %; MCH 29.3 pg (25.0-35.0); MCHC 34.4 g/dL (31.0-37.0); MCV 85.1 fL (80.0-100.0); Mean Platelet Volume 7.7; Monocytes # (A) 0.4 k/uL (0-1.0); Monocytes % (A) 4 %; Neutrophils % (A) 42 %; Platelet Count 302 k/uL (150-450); RBC 4.62 m/uL (3.80-5.40); RDW 11.9 % (11.5-15.5); WBC 9.3 k/uL (3.8-10.6)
[2017-06-24 06:05] LABS: Appearance,Urine Cloudy (Clear); Bilirubin,Urine Negative (Negative); Blood,Urine Small (Negative); Color,Urine Yellow; Glucose,Urine (UA) Negative (Negative); Hyaline Casts,Urine 4 /lpf (0-2); Ketones,Urine 1+ (Negative); Leukocyte Esterase,Urine Trace (Negative); Mucus,Urine Few /hpf; Nitrite,Urine Negative (Negative); PH, Urine 5.5 (5.0-8.0); Protein,Urine Trace (Negative); RBC,Urine 9 /hpf (0-5); Specific Gravity,Urine 1.022 (1.001-1.035); Squamous Epithelial Cell,Urine 3 /hpf (0-4); Urobilinogen,Urine <2.0 mg/dL (<2.0); WBC,Urine 6 /hpf (0-5)
[2017-06-24 06:10] LABS: Amphetamine Screen,Urine Not Detected (NotDetected); Barbiturate Screen,Urine Not Detected (NotDetected); Benzodiazepines Screen,Urine Not Detected (NotDetected); Cocaine Screen,Urine Not Detected (NotDetected); Methadone Screen, Urine Not Detected (NotDetected); Opiate Screen,Urine Not Detected (NotDetected); Oxycodone Screen, Urine Not Detected (NotDetected); Phencyclidine Screen,Urine Not Detected (NotDetected); Tricyclic Antidepressant,Urine Not Detected (NotDetected); Urn Cannabinoid Scrn Detected (NotDetected)
[2017-06-24 06:16] LABS: ALT 19 U/L (9-52); AST 21 U/L (14-36); Acetaminophen <10.0 ug/mL; Albumin 4.8 g/dL (3.5-5.0); Alcohol 60 mg/dL; Alkaline Phosphatase 44 U/L (38-126); Anion Gap 21 mmol/L; Blood Urea Nitrogen 11 mg/dL (7-17); Carbamazepine (Tegretol) <3.0 ug/mL; Carbon Dioxide 19 mmol/L (22-30); Chloride 107 mmol/L (98-107); Glucose 101 mg/dL (74-99); Phenytoin (Dilantin) <3.0 ug/mL; Potassium 3.6 mmol/L (3.5-5.1); Salicylate <1.0 mg/dL; Sodium 147 mmol/L (137-145); Total Bilirubin 0.3 mg/dL (0.2-1.3); Total Protein 7.3 g/dL (6.3-8.2)
[2017-06-24 06:19] LABS: Valproic Acid (Depakene) <10.0 ug/mL
--- NOTE | 2017-06-24 06:32 | CT ---
EXAM: CT Head Without Intravenous Contrast CLINICAL HISTORY: Seizure TECHNIQUE: Axial computed tomography images of the head/brain without intravenous contrast. CTDI is 57.40 mGy and DLP is 995.5 mGy-cm. This CT exam was performed using one or more of the following dose reduction techniques: automated exposure control, adjustment of the mA and/or kV according to patient size, and/or use of iterative reconstruction technique. COMPARISON: No relevant prior studies available. FINDINGS: Brain: No acute infarct, hemorrhage, mass or edema. No significant white matter disease. Ventricles: Unremarkable. No ventriculomegaly. Bones/joints: Unremarkable. No acute fracture. Soft tissues: Unremarkable. Sinuses: Mild mucosal thickening in the paranasal sinuses. Mastoid air cells: Unremarkable as visualized. No mastoid effusion. IMPRESSION: No acute findings.
--- NOTE | 2017-06-24 07:03 | ED ---
Seizure HPI - General Chief Complaint: Seizure Stated Complaint: Seizure Time Seen by Provider: 06/24/17 05:15 Source: EMS Mode of arrival: EMS Limitations: altered mental status - History of Present Illness Initial Comments: [age] years old young lady brought in by EMS she was [facility] when ambulance was called that she had a seizure, she has a history of seizure disorder she does take a Keppra for seizures but she stated she hasn't had any For the last 4 months. On arrival she was totally unresponsive and later she woke up observation admission was offered and she said now she wants to go home. Review of system is negative for any headaches any chest pain any shortness of breath or for any other injuries - Related Data Previous Rx's Medication Instructions Recorded levETIRAcetam [Keppra] 500 mg PO Q12HR #60 tab 06/24/17 Allergies Allergy/AdvReac Type Severity Reaction Status Date / Time Unable to Assess Allergy Verified 06/24/17 05:46 Review of Systems ROS Statement: Those systems with pertinent positive or pertinent negative responses have been documented in the HPI. ROS Other: All systems not noted in ROS Statement are negative. Past Medical History Past Medical History: No Reported History Past Surgical History: No Surgical Hx Reported General Exam - General Exam Comments Initial Comments: General: The patient is quite unresponsive on arrival she would only responding to sternal rub but later she woke up and GCS was 15 Skin: Skin is warm and dry and no rashes or lesions are noted. Eye: Pupils are equal, round and reactive to light, extra-ocular movements are intact; there is normal conjunctiva bilaterally. Ears, nose, mouth and throat: There are moist mucous membranes and no oral lesions. Neck: The neck is supple, there is no tenderness or JVD. Cardiovascular: There is a regular rate and rhythm. No murmur, rub or gallop is appreciated. Respiratory: To auscultation bilateral, no wheezing no rhonchi no distress respiratory lawson noticed Gastrointestinal: Soft, non-distended, non-tender abdomen without masses or organomegaly noted. There is no rebound or guarding present. Bowel sounds are unremarkable. Back: There is no tenderness to palpation in the midline. There is no obvious deformity. Musculoskeletal: Normal ROM, no tenderness, There is no pedal edema. There is no calf tenderness or swelling. No cords were appreciated. Neurological: CN II-XII intact, Cranial nerves III through XII are intact. There are no obvious motor or sensory deficits. Coordination appears grossly intact. Speech is normal. Psychiatric: Cooperative, appropriate mood & affect, normal judgment. Limitations: altered mental status Course Vital Signs 06/24/17 06/24/17 06/24/17 05:25 05:52 06:18 Temperature 98 F Pulse Rate 119 H 84 68 Respiratory 16 16 16 Rate Blood Pressure 129/76 134/73 107/91 O2 Sat by Pulse 100 100 100 Oximetry EKG is no sinus rhythm ventricular rate is 93 NC interval is 128 QRS duration is 80 QT/QTc is 366/455 review of this EKG does not reveal any ST elevation or ST depression Reassessment GCS is 15 I had offered the 24-hour observation the patient wants to go home, all the labs and imaging was reviewed head CT is normal CBC is normal sodium is 147 CO2 is 19 patient had some IV fluids urinalysis is normal except + ketones urine drug screen showed some marijuana and alcohol was 60. Her GCS is 15 she wants to go home she ambulated well in the ER she hasn't had her Keppra for about 4 months now she agreed with the Keppra prescription 500 mg twice daily this point she said she had before and she will follow-up with Dr. Richmond Medical Decision Making - Lab Data Result diagrams: 06/24/17 05:21 06/24/17 05:21 Lab Results 06/24/17 06/24/17 06/24/17 Range/Units 05:21 05:21 05:21 WBC 9.3 (3.8-10.6) k/uL RBC 4.62 (3.80-5.40) m/uL Hgb 13.5 (11.4-16.0) gm/dL Hct 39.3 (34.0-46.0) % MCV 85.1 (80.0-100.0) fL MCH 29.3 (25.0-35.0) pg MCHC 34.4 (31.0-37.0) g/dL RDW 11.9 (11.5-15.5) % Plt Count 302 (150-450) k/uL Neutrophils % 42 % Lymphocytes % 48 % Monocytes % 4 % Eosinophils % 3 % Basophils % 1 % Neutrophils # 4.0 (1.3-7.7) k/uL Lymphocytes # 4.5 (1.0-4.8) k/uL Monocytes # 0.4 (0-1.0) k/uL Eosinophils # 0.3 (0-0.7) k/uL Basophils # 0.1 (0-0.2) k/uL Sodium 147 H (137-145) mmol/L Potassium 3.6 (3.5-5.1) mmol/L Chloride 107 (98-107) mmol/L Carbon Dioxide 19 L (22-30) mmol/L Anion Gap 21 mmol/L BUN 11 (7-17) mg/dL Creatinine 0.50 L (0.52-1.04) mg/dL Est GFR (CKD-EPI)AfAm >90 (>60 ml/min/1.73 sqM) Est GFR (CKD-EPI)NonAf >90 (>60 ml/min/1.73 sqM) Glucose 101 H (74-99) mg/dL POC Glucose (mg/dL) (75-99) mg/dL POC Glu Cleaning Machine Operator ID Calcium 10.0 (8.4-10.2) mg/dL Total Bilirubin 0.3 (0.2-1.3) mg/dL AST 21 (14-36) U/L ALT 19 (9-52) U/L Alkaline Phosphatase 44 (38-126) U/L Total Protein 7.3 (6.3-8.2) g/dL Albumin 4.8 (3.5-5.0) g/dL Urine Color Yellow Urine Appearance Cloudy H (Clear) Urine pH 5.5 (5.0-8.0) Ur Specific [place] 1.022 (1.001-1.035) Urine Protein Trace H (Negative) Urine Glucose (UA) Negative (Negative) Urine Ketones 1+ H (Negative) Urine Blood Small H (Negative) Urine Nitrite Negative (Negative) Urine Bilirubin Negative (Negative) Urine Urobilinogen <2.0 (<2.0) mg/dL Ur Leukocyte Esterase Trace H (Negative) Urine RBC 9 H (0-5) /hpf Urine WBC 6 H (0-5) /hpf Ur Squamous Epith Cells 3 (0-4) /hpf Hyaline Casts 4 H (0-2) /lpf Urine Mucus Few H (None) /hpf Salicylates <1.0 mg/dL Urine Opiates Screen Not Detected (NotDetected) Ur Oxycodone Screen Not Detected (NotDetected) Urine Methadone Screen Not Detected (NotDetected) Ur Propoxyphene Screen Not Detected (NotDetected) Acetaminophen <10.0 ug/mL Ur Barbiturates Screen Not Detected (NotDetected) Phenytoin <3.0 ug/mL Valproic Acid <10.0 ug/mL Carbamazepine <3.0 ug/mL U Tricyclic Antidepress Not Detected (NotDetected) Ur Phencyclidine Scrn Not Detected (NotDetected) Ur Amphetamines Screen Not Detected (NotDetected) U Methamphetamines Scrn Not Detected (NotDetected) U Benzodiazepines Scrn Not Detected (NotDetected) Urine Cocaine Screen Not Detected (NotDetected) U Marijuana (THC) Screen Detected H (NotDetected) Serum Alcohol 60 mg/dL 06/24/17 Range/Units 05:44 WBC (3.8-10.6) k/uL RBC (3.80-5.40) m/uL Hgb (11.4-16.0) gm/dL Hct (34.0-46.0) % MCV (80.0-100.0) fL MCH (25.0-35.0) pg MCHC (31.0-37.0) g/dL RDW (11.5-15.5) % Plt Count (150-450) k/uL Neutrophils % % Lymphocytes % % Monocytes % % Eosinophils % % Basophils % % Neutrophils # (1.3-7.7) k/uL Lymphocytes # (1.0-4.8) k/uL Monocytes # (0-1.0) k/uL Eosinophils # (0-0.7) k/uL Basophils # (0-0.2) k/uL Sodium (137-145) mmol/L Potassium (3.5-5.1) mmol/L Chloride (98-107) mmol/L Carbon Dioxide (22-30) mmol/L Anion Gap mmol/L BUN (7-17) mg/dL Creatinine (0.52-1.04) mg/dL Est GFR (CKD-EPI)AfAm (>60 ml/min/1.73 sqM) Est GFR (CKD-EPI)NonAf (>60 ml/min/1.73 sqM) Glucose (74-99) mg/dL POC Glucose (mg/dL) 98 (75-99) mg/dL POC Glu Cleaning Machine Operator ID Leslie Garner Calcium (8.4-10.2) mg/dL Total Bilirubin (0.2-1.3) mg/dL AST (14-36) U/L ALT (9-52) U/L Alkaline Phosphatase (38-126) U/L Total Protein (6.3-8.2) g/dL Albumin (3.5-5.0) g/dL Urine Color Urine Appearance (Clear) Urine pH (5.0-8.0) Ur Specific [place] (1.001-1.035) Urine Protein (Negative) Urine Glucose (UA) (Negative) Urine Ketones (Negative) Urine Blood (Negative) Urine Nitrite (Negative) Urine Bilirubin (Negative) Urine Urobilinogen (<2.0) mg/dL Ur Leukocyte Esterase (Negative) Urine RBC (0-5) /hpf Urine WBC (0-5) /hpf Ur Squamous Epith Cells (0-4) /hpf Hyaline Casts (0-2) /lpf Urine Mucus (None) /hpf Salicylates mg/dL Urine Opiates Screen (NotDetected) Ur Oxycodone Screen (NotDetected) Urine Methadone Screen (NotDetected) Ur Propoxyphene Screen (NotDetected) Acetaminophen ug/mL Ur Barbiturates Screen (NotDetected) Phenytoin ug/mL Valproic Acid ug/mL Carbamazepine ug/mL U Tricyclic Antidepress (NotDetected) Ur Phencyclidine Scrn (NotDetected) Ur Amphetamines Screen (NotDetected) U Methamphetamines Scrn (NotDetected) U Benzodiazepines Scrn (NotDetected) Urine Cocaine Screen (NotDetected) U Marijuana (THC) Screen (NotDetected) Serum Alcohol mg/dL Disposition Clinical Impression: Seizure disorder Disposition: HOME SELF-CARE Condition: Good Instructions: Recurrent Seizures in Adults (ED) Prescriptions: levETIRAcetam [Keppra] 500 mg PO Q12HR #60 tab Is patient prescribed a controlled substance at d/c from ED?: No If prescribed controlled substance>3 days was MAPS reviewed?: No When asked, does pt state using other controlled substances?: No Referrals: Jama Summers DO [Primary Care Provider] - 1-2 days
[2017-06-24 07:57] VITALS: BP 111/67; PULSE 68; TEMP 97.6
== END 2017-06-24 08:04 | disposition home or self-care (01) ==
LOC: EDBD → SUPCPDRO 05:07 → EC 05:07 → MERGE 05:07 → EC 08:04
DX: G40.909 Epilepsy, unspecified, not intractable, without status epilepticus (principal)
CPT/HCPCS: 99285; 51701; 96374; 96361 ×2; 36415; 93005; 80156; 80164; 80053; 80185; 85025; 81001; 80306; 83520 ×2; 80320; 70450; J2310

== ENCOUNTER 2017-08-22 20:05 | Emergency (ER) | payer OTHER ==
[2017-08-22 20:19] VITALS: BP 110/73; PULSE 90; RESP 16; TEMP 98.9
--- NOTE | 2017-08-22 21:18 | XR ---
EXAMINATION TYPE: XR chest 2V DATE OF EXAM: 08/22/2017 COMPARISON: 08/05/2016 HISTORY: Throat pain. Congestion. TECHNIQUE: Frontal and lateral views of the chest are obtained. FINDINGS: Heart and mediastinum are normal. Lungs are clear. Diaphragm is normal. Bony thorax appear s normal. Subglottic trachea is normal. IMPRESSION: Normal chest. No change.
--- NOTE | 2017-08-22 21:46 | ED ---
General Adult HPI - General Chief complaint: ENT Stated complaint: congestion Time Seen by Provider: 08/22/17 20:31 Source: patient Mode of arrival: ambulatory - History of Present Illness Initial comments: 26-year-old female patient presents to the emergency department today for evaluation of cough, nasal congestion, sore throat, and chest tightness that started this morning. Patient states that her sister has been sick with similar symptoms for the last week. She denies any fevers or chills. Does admit to smoking cigarettes. States that she has body aches, a headache, and has been tired throughout the day. She denies any chance of . Patient denies any recent rash, chest pain, abdominal pain, nausea, vomiting, diarrhea, constipation, back pain, numbness, tingling, dizziness, weakness, hematuria, dysuria, urinary urgency, urinary frequency, visual changes, or any other complaints. - Related Data Previous Rx's Medication Instructions Recorded Albuterol Sulfate [Proair Hfa] 1 - 2 puff INHALATION Q6HR PRN #1 08/22/17 inhaler Allergies Allergy/AdvReac Type Severity Reaction Status Date / Time Penicillins Allergy Severe Rash/Hives Verified 08/22/17 20:19 Review of Systems ROS Statement: Those systems with pertinent positive or pertinent negative responses have been documented in the HPI. ROS Other: All systems not noted in ROS Statement are negative. Past Medical History Past Medical History: No Reported History, Seizure Disorder Additional Past Medical History / Comment(s): recent diagnosis of seizure disorder 2017 History of Any Multi-Drug Resistant Organisms: None Reported Past Surgical History: Section, No Surgical Hx Reported Additional Past Surgical History / Comment(s): Left wrist ganglion cystectomy Past Anesthesia/Blood Transfusion Reactions: No Reported Reaction Past Psychological History: No Psychological Hx Reported Smoking Status: Current every day smoker Past Alcohol Use History: Occasional Past Drug Use History: None Reported - Past Family History Father Additional Family Medical History / Comment(s): Father is alive at age 40 with no major medical problems. Brother(s) Additional Family Medical History / Comment(s): She has 2 brothers with no major medical problems. She has one sister with scoliosis. Patient has 2 sons that are healthy. Mother Family Medical History: No Reported History Additional Family Medical History / Comment(s): Mother is alive at age 40 with history of arthritis and degenerative disc disease. General Exam General appearance: alert, in no apparent distress, other (This is a well- developed, well-nourished adult female patient in no acute distress. Vital signs upon presentation are temperature 98.9F, pulse 90, respirations 16, blood pressure 110/73, pulse ox 99% on room air.) Eye exam: Present: normal appearance, PERRL, EOMI. Absent: scleral icterus, conjunctival injection, periorbital swelling ENT exam: Present: normal exam, normal oropharynx, mucous membranes moist, TM's normal bilaterally Neck exam: Present: normal inspection. Absent: tenderness, meningismus, lymphadenopathy Respiratory exam: Present: normal lung sounds bilaterally. Absent: respiratory distress, wheezes, rales, rhonchi, stridor Cardiovascular Exam: Present: regular rate, normal rhythm, normal heart sounds. Absent: systolic murmur, diastolic murmur, rubs, gallop, clicks GI/Abdominal exam: Present: soft, normal bowel sounds. Absent: distended, tenderness, guarding, rebound, rigid Neurological exam: Present: alert, oriented X3, CN II-XII intact Psychiatric exam: Present: normal affect, normal mood Skin exam: Present: warm, dry, intact, normal color. Absent: rash Course Vital Signs 08/22/17 20:17 Temperature 98.9 F Pulse Rate 90 Respiratory 16 Rate Blood Pressure 110/73 O2 Sat by Pulse 99 Oximetry Medical Decision Making - Medical Decision Making 26 year-old female patient presented to the emergency department today for evaluation of upper respiratory symptoms including cough, nasal congestion, and sore throat. Physical examination was unremarkable. Lungs are clear to auscultation with good air movement. Oral pharynx was erythematous without any evidence of exudate or tonsillar hypertrophy. Patient had no lymphadenopathy. Patient is afebrile, vital signs are stable. Patient has upper respiratory infection most likely caused from a virus. Chest x-ray showed no evidence of pneumonia. Patient will be given an inhaler for chest tightness and cough. She is instructed to take [id number] nasal decongestants and cold remedies such as NyQuil or DayQuil. Ibuprofen is recommended for throat pain. She is instructed to increase fluids. She is instructed to follow-up with her primary care physician for recheck in 1-2 days. Return parameters discussed in detail. She verbalizes understanding and agrees with this plan. - Radiology Data Radiology results: report reviewed, image reviewed Two-view x-ray of the chest is obtained. Heart and mediastinum are normal. Lungs are clear. Diaphragm is normal. Bony thorax appears normal. Subglottic trachea is normal. Impression by Dr. Livingston shows normal chest with no change. Disposition Clinical Impression: Viral upper respiratory infection Disposition: HOME SELF-CARE Condition: Good Instructions: Upper Respiratory Infection (ED) Additional Instructions: Increase fluids. Take ibuprofen for your throat pain. Use inhaler for chest tightness and shortness of breath. Use [id number] cough and cold remedies such as DayQuil and NyQuil for symptom relief. Follow-up with your primary care physician for recheck in 1-2 days. Return here immediately for any new, worsening, or concerning symptoms. Prescriptions: Albuterol Sulfate [Proair Hfa] 1 - 2 puff INHALATION Q6HR PRN #1 inhaler PRN Reason: Shortness Of Breath Is patient prescribed a controlled substance at d/c from ED?: No Referrals: Jama Summers DO [Primary Care Provider] - 1-2 days Time of Disposition: 21:46
== END 2017-08-22 22:03 | disposition home or self-care (01) ==
LOC: EC 20:05
DX: J06.9 Acute upper respiratory infection, unspecified (principal); F17.200 Nicotine dependence, unspecified, uncomplicated; Z88.0 Allergy status to penicillin
CPT/HCPCS: 71046; 99283

== ENCOUNTER 2019-02-24 21:51 | Emergency (ER) | payer OTHER ==
[2019-02-24 21:55] VITALS: BP 126/78; PULSE 93; RESP 16; TEMP 97.5
[2019-02-24] MEDS ORDERED: predniSONE 50 MG TAB PO STA (22:21)
--- NOTE | 2019-02-24 22:30 | ED ---
General Adult HPI - General Chief complaint: Skin/Abscess/Foreign Body Stated complaint: Rash Time Seen by Provider: 02/24/19 21:59 Source: patient, RN notes reviewed Mode of arrival: ambulatory Limitations: no limitations - History of Present Illness Initial comments: 28-year-old female presents to the emergency department for a chief complaint of rash. Patient has had a rash for the past few days. States that the rash started on her abdomen a few days ago and has since spread to her back as well as in her arms and upper legs. States it is pruritic in nature. Patient denies anyone else having the rash. Denies any new detergents. Patient denies fevers or chills. Denies any upper respiratory symptoms. Patient has no other complaints at this time including shortness of breath, chest pain, abdominal pain, nausea or vomiting, headache, or visual changes. - Related Data Previous Rx's Medication Instructions Recorded Albuterol Sulfate [Proair Hfa] 1 - 2 puff INHALATION Q6HR PRN #1 08/22/17 inhaler hydrOXYzine HCL [Atarax] 25 mg PO TID PRN #20 tab 02/24/19 predniSONE 50 mg PO DAILY #5 tablet 02/24/19 Allergies Allergy/AdvReac Type Severity Reaction Status Date / Time Penicillins Allergy Severe Rash/Hives Verified 08/22/17 20:19 Review of Systems ROS Statement: Those systems with pertinent positive or pertinent negative responses have been documented in the HPI. ROS Other: All systems not noted in ROS Statement are negative. Past Medical History Past Medical History: No Reported History, Seizure Disorder Additional Past Medical History / Comment(s): recent diagnosis of seizure disorder 2017 History of Any Multi-Drug Resistant Organisms: None Reported Past Surgical History: Section, No Surgical Hx Reported Additional Past Surgical History / Comment(s): Left wrist ganglion cystectomy Past Anesthesia/Blood Transfusion Reactions: No Reported Reaction Past Psychological History: No Psychological Hx Reported Smoking Status: Current every day smoker Past Alcohol Use History: Occasional Past Drug Use History: None Reported - Past Family History Father Additional Family Medical History / Comment(s): Father is alive at age 40 with no major medical problems. Brother(s) Additional Family Medical History / Comment(s): She has 2 brothers with no major medical problems. She has one sister with scoliosis. Patient has 2 sons that are healthy. Mother Family Medical History: No Reported History Additional Family Medical History / Comment(s): Mother is alive at age 40 with history of arthritis and degenerative disc disease. General Exam Limitations: no limitations General appearance: alert, in no apparent distress Head exam: Present: atraumatic, normocephalic, normal inspection Eye exam: Present: normal appearance, PERRL, EOMI. Absent: scleral icterus, conjunctival injection, periorbital swelling ENT exam: Present: normal exam, mucous membranes moist Neck exam: Present: normal inspection. Absent: tenderness, meningismus, lymphadenopathy Respiratory exam: Present: normal lung sounds bilaterally. Absent: respiratory distress, wheezes, rales, rhonchi, stridor Cardiovascular Exam: Present: regular rate, normal rhythm, normal heart sounds. Absent: systolic murmur, diastolic murmur, rubs, gallop, clicks GI/Abdominal exam: Present: soft, normal bowel sounds. Absent: distended, tenderness, guarding, rebound, rigid Skin exam: Present: other (Erythematous plaque-like pattern noted on back and abdomen as well as forearms and upper legs. Appears somewhat like psoriasis rosea) Course Vital Signs 02/24/19 21:52 Temperature 97.5 F L Pulse Rate 93 Respiratory 16 Rate Blood Pressure 126/78 O2 Sat by Pulse 98 Oximetry Medical Decision Making - Medical Decision Making Erythematous plaque-like rash noted to abdomen and back. This does not appear to be hive-like in nature. Does appear to be similar to psoriasis rosea. Patient reports it is itchy. There is no rash on palms or soles. No mucous membrane lesions. Patient will be treated with Atarax and steroids. Recommend she follow up with primary care dermatology. Recommend she return here if she has any worsening or systemic symptoms. Disposition Clinical Impression: Rash Disposition: HOME SELF-CARE Condition: Good Instructions (If sedation given, give patient instructions): Acute Rash (ED) Additional Instructions: Please take steroid as directed. Take Atarax as needed for itching but do not drive or operative machinery while taking this as it may make you drowsy. Follow-up with primary care or dermatology in 1-2 days. Return to the emergency department if you have any worsening symptoms. Prescriptions: hydrOXYzine HCL [Atarax] 25 mg PO TID PRN #20 tab PRN Reason: Itching predniSONE 50 mg PO DAILY #5 tablet Is patient prescribed a controlled substance at d/c from ED?: No Referrals: Jama Summers DO [Primary Care Provider] - 1-2 days Jose Antonio Barker MD [STAFF PHYSICIAN] - 1-2 days Time of Disposition: 22:20
== END 2019-02-24 22:43 | disposition home or self-care (01) ==
LOC: EC 21:51
DX: R21 Rash and other nonspecific skin eruption (principal); L29.9 Pruritus, unspecified; F17.200 Nicotine dependence, unspecified, uncomplicated; Z88.0 Allergy status to penicillin
CPT/HCPCS: 99282; J7512

== ENCOUNTER → 2020-05-12 | Outpatient (CLI) | payer OTHER ==
--- NOTE | 2020-05-12 15:42 | US ---
EXAMINATION TYPE: Transabdominal DATE OF EXAM: 05/12/2020 3:19 PM COMPARISON: NONE CLINICAL HISTORY: Z36 Confirm dates. Confirm dates. EXAM PERFORMED: Transabdominal (TA) EXAM MEASUREMENTS: GESTATIONAL AGE / DATING Physician Established: Not yet established Dates by LMP: 02/25/2020 (11 weeks/0 days) EDC: 12/01/2020 Dates by First Scan: No previous this is first scan ( Dates by Current Scan for: (11 weeks/2 days) EDC: 11/29/2020 MATERNAL ANATOMY Uterus: 11.6 x 7.5 x 7.7 cm Right Ovary: 2.7 x 2.0 x 1.7 cm Left Ovary: 4.6 x 2.8 x 2.1 cm Post CDS / Adnexa: wnl Presence of free fluid: no Presence of corpus luteal cyst: yes Presence of subchorionic bleed: no GESTATION / SURVEY CRL: 4.34 cm (11 weeks/2 days) Yolk Sac (normal less than 6mm): 4 mm Heart Rate: 142 bpm Rhythm: Normal IUP: Viable IUP IMPRESSION: 1. Single intrauterine gestation estimated at 11 weeks 2 days gestation based on the crown-rump lengt h. Cardiac activity measures 142 bpm.
== END ==
LOC: RADUSWWP 15:00
PROVIDERS: ATTEND Obstetrics & Gynecology
DX: Z36.89 Encounter for other specified antenatal screening (principal); Z3A.11 11 weeks gestation of pregnancy
CPT/HCPCS: 76801

== ENCOUNTER 2020-11-16 02:35 | Inpatient (IN) | payer OTHER ==
[2020-11-16] MEDS ORDERED: METHYLERGONOVINE 0.2 MG/ML 1 ML AMP IM PRN (03:08)
[2020-11-16] MEDS ORDERED: OXYTOCIN 10 UNIT/ML 1 ML VIAL IM PRN (03:08)
[2020-11-16] MEDS ORDERED: LIDOCAINE 0.5% (PF) 5 MG/ML (50 ML SDV) SQ PRN (03:08)
[2020-11-16] MEDS ORDERED: CARBOPROST TROMETHAMINE 250 MCG/ML 1 ML AMP IM PRN (03:08)
[2020-11-16] MEDS ORDERED: TERBUTALINE 1 MG/ML VIAL SQ PRN (03:08)
[2020-11-16] MEDS ORDERED: OXYTOCIN 30 UNITS/500 ML NS 30 UNIT in SALINE 1 500ML.BAG IV SCH (03:15)
[2020-11-16] MEDS ORDERED: CLINDAMYCIN 900 MG in DEXTROSE 5% IN WATER 50 ML IVPB ONE ×2 (03:15)
[2020-11-16] MEDS: LACTATED RINGERS 1,000 ML IV SCH ×3 (03:42→16:20)
[2020-11-16 04:06] LABS: Basophils % (A) 0 %; Eosinophils # (A) 0.2 k/uL (0-0.7); Eosinophils % (A) 2 %; HCT 36.3 % (34.0-46.0); HGB 12.3 gm/dL (11.4-16.0); Lymphocytes # (A) 1.9 k/uL (1.0-4.8); Lymphocytes % (A) 19 %; MCH 29.8 pg (25.0-35.0); MCHC 33.9 g/dL (31.0-37.0); MCV 87.8 fL (80.0-100.0); Monocytes # (A) 0.6 k/uL (0-1.0); Monocytes % (A) 6 %; Neutrophils % (A) 71 %; Platelet Count 316 k/uL (150-450); RBC 4.13 m/uL (3.80-5.40); RDW 11.9 % (11.5-15.5); WBC 9.9 k/uL (3.8-10.6)
--- NOTE | 2020-11-16 05:29 | P.HPOB ---
History of Present Illness H&P Date: 11/16/20 Chief Complaint: srom 30 year old presents at 37 weeks 6 days with SROM at 0030. Her cervix is 1/70/-2. She is romelia irregularly but not feeling them. She had one previous vaginal delivery and 1 section for heart tones. We discussed with all the risks and benefits alternatives. With shared decision-making, Patient would like to have a trial of labor Review of Systems All systems: negative Constitutional: Denies chills, Denies fever Eyes: denies blurred vision, denies pain Ears, nose, mouth and throat: Denies headache, Denies sore throat Cardiovascular: Denies chest pain, Denies shortness of breath Respiratory: Denies cough Gastrointestinal: Denies abdominal pain, Denies diarrhea, Denies nausea, Denies vomiting Genitourinary: Denies dysuria, Denies hematuria Musculoskeletal: Denies myalgias Integumentary: Denies pruritus, Denies rash Neurological: Denies numbness, Denies weakness Psychiatric: Denies anxiety, Denies depression Endocrine: Denies fatigue, Denies weight change Past Medical History Past Medical History: Seizure Disorder Additional Past Medical History / Comment(s): seizure in Feb 2020 History of Any Multi-Drug Resistant Organisms: None Reported Past Surgical History: Section, No Surgical Hx Reported Additional Past Surgical History / Comment(s): Left wrist ganglion cystectomy Past Anesthesia/Blood Transfusion Reactions: No Reported Reaction Past Psychological History: No Psychological Hx Reported Smoking Status: Former smoker Past Alcohol Use History: Occasional Additional Past Alcohol Use History / Comment(s): Patient states that she quit smoking at start of Past Drug Use History: None Reported - Past Family History Father Family Medical History: No Reported History Additional Family Medical History / Comment(s): Father is alive at age 40 with no major medical problems. Brother(s) Family Medical History: No Reported History Additional Family Medical History / Comment(s): She has 2 brothers with no major medical problems. She has one sister with scoliosis. Patient has 2 sons that are healthy. Mother Family Medical History: No Reported History Additional Family Medical History / Comment(s): Mother is alive at age 40 with history of arthritis and degenerative disc disease. Medications and Allergies Home Medications Medication Instructions Recorded Confirmed Type Pnv No.95/Ferrous Fum/Folic AC 1 tab PO DAILY MDD 1 11/16/20 11/16/20 History [ Multivitamin Tablet] Allergies Allergy/AdvReac Type Severity Reaction Status Date / Time Penicillins Allergy Severe Rash/Hives Verified 11/16/20 02:59 Exam Osteopathic Statement: *. No significant issues noted on an osteopathic structural exam other than those noted in the History and Physical/Consult. Vital Signs Temp Pulse Resp BP 11/16/20 02:58 95.4 F L 97 16 126/75 Intake and Output 11/15/20 11/15/20 11/16/20 14:59 22:59 06:59 Other: Weight 78.018 kg Heart: Regular rate and rhythm Lungs: Clear to auscultation bilaterally Abdomen: Soft, nontender Extremities: Negative Homans sign Results Result Diagrams: 11/16/20 03:42 Assessment and Plan (1) Spontaneous rupture of membranes Current Visit: Yes Status: Acute Code(s): YGI0624 - SNOMED Code(s): 991987744 (2) Previous section Current Visit: Yes Status: Acute Code(s): Z98.891 - HISTORY OF UTERINE SCAR FROM PREVIOUS SURGERY SNOMED Code(s): 744122273 (3) Group B Streptococcus carrier, +RV culture, currently Current Visit: No Status: Acute Code(s): O99.820 - STREPTOCOCCUS B CARRIER STATE COMPLICATING SNOMED Code(s): 7795195185993 Plan: 1. Admit to family place 2. Expectant management and Pitocin augmentation if necessary
[2020-11-16] MEDS: BUTORPHANOL 1 MG/ML 1 ML VIAL IV PRN ×2 (08:44→10:59)
[2020-11-16] MEDS ORDERED: ONDANSETRON 4 MG/2 ML VIAL IVP STA ×2 (09:51→16:12)
[2020-11-16] MEDS ORDERED: CLINDAMYCIN 900 MG in DEXTROSE 5% IN WATER 50 ML IVPB SCH ×2 (11:15)
[2020-11-16] MEDS ORDERED: ROPIVACAINE 100 MG, fentaNYL (PF). 200 MCG in SODIUM CHLORIDE 0.9% 76 ML EPIDURAL ONE (12:30)
--- NOTE | 2020-11-16 18:50 | P.PROBDLV ---
Vaginal Delivery Note - . Vaginal Delivery Note: Patient progressed complete and pushing with spontaneous vaginal delivery of a viable male over intact perineum. Baby was delivered from left occiput anterior position. Following deliver the head anterior shoulder was delivered gentle downward traction followed by upper traction deliver the posterior shoulder and remainder the baby. There was a compound hand and compound cord noted but baby did well throughout the labor and delivery process. Once it was fully delivered mouth nares were bulb suctioned and baby was placed on mother's abdomen where the umbilical cord was allowed to pulsate for 30 seconds prior to clamping cutting. Nursery personnel was present and assumed care. Placenta was then delivered intact Pitocin was added to the IV. scores 9 and 9 at one and 5 minutes respectively and the weight was 6 lbs. 13 oz. Both mother and ba by are stable following delivery.
[2020-11-16] MEDS ORDERED: BENZOCAINE/MENTHOL SPRAY 1 GM/SPRAY AEROSOL TOPICAL PRN (19:12)
[2020-11-16] MEDS ORDERED: SIMETHICONE 80 MG CHEWABLE PO PRN (19:12)
[2020-11-16] MEDS ORDERED: diphenhydrAMINE 25 MG CAP PO PRN (19:12)
[2020-11-16] MEDS ORDERED: ZOLPIDEM 5 MG TAB PO PRN (19:12)
[2020-11-16] MEDS ORDERED: diphenhydrAMINE 50 MG CAP PO PRN (19:12)
[2020-11-16] MEDS ORDERED: LANOLIN CREAM 5 GM TUBE TOPICAL PRN (19:12)
[2020-11-16] MEDS ORDERED: HYDROCORTISONE 2.5% RECTAL CREAM 30 GM TUBE RECTAL PRN (19:12)
[2020-11-16] MEDS ORDERED: diphenhydrAMINE 50 MG/ML 1 ML VIAL IVP PRN ×2 (19:12)
[2020-11-16] MEDS: SENNOSIDES-DOCUSATE SODIUM 1 EACH TAB PO SCH (19:27)
[2020-11-16] MEDS: IBUPROFEN 600 MG TAB PO SCH (19:27)
[2020-11-16] MEDS: ACETAMINOPHEN TAB 325 MG TAB PO PRN (21:50)
[2020-11-17] MEDS: IBUPROFEN 600 MG TAB PO SCH ×4 (03:49→22:27)
[2020-11-17 07:32] LABS: Basophils % (A) 0 %; Eosinophils # (A) 0.1 k/uL (0-0.7); Eosinophils % (A) 1 %; HCT 32.6 % (34.0-46.0); HGB 11.5 gm/dL (11.4-16.0); Lymphocytes # (A) 1.8 k/uL (1.0-4.8); Lymphocytes % (A) 12 %; MCH 30.6 pg (25.0-35.0); MCHC 35.2 g/dL (31.0-37.0); MCV 86.8 fL (80.0-100.0); Mean Platelet Volume 7.7; Monocytes # (A) 0.5 k/uL (0-1.0); Monocytes % (A) 3 %; Neutrophils # (A) 12.7 k/uL (1.3-7.7); Neutrophils % (A) 82 %; Platelet Count 296 k/uL (150-450); RBC 3.76 m/uL (3.80-5.40); RDW 12.3 % (11.5-15.5); WBC 15.5 k/uL (3.8-10.6)
--- NOTE | 2020-11-17 08:26 | P.PNOBGVD ---
Subjective - Subjective Principal diagnosis: day 1 Interval history: Patient is doing very well this morning. She is ambulating, voiding and tolerating her diet. Her baby is however in special care nursery doing antibiotic therapy. We'll plan discharged home tomorrow. Vital signs are stable and afebrile. Heart regular, lungs clear, extremities without pain. Abdomen is soft and uterus is firm. Lochia is light. Assessment day 1. Plan continue care. Patient reports: Reports appetite normal, Reports voiding normally, Reports pain well controlled, Reports ambulating normally : in NICU Objective - Latest Vital Signs Latest vital signs: Vital Signs Temp Pulse Resp BP Pulse Ox 11/17/20 03:50 97.8 F 68 16 105/69 98 11/17/20 00:00 98.1 F 68 14 105/67 97 11/16/20 20:50 88 16 121/55 11/16/20 20:20 88 16 163/67 11/16/20 19:50 91 16 126/76 11/16/20 19:37 90 16 115/58 11/16/20 19:05 104 H 16 124/83 99 11/16/20 18:50 97.9 F 104 H 18 124/83 93 L Intake and Output 11/16/20 11/17/20 11/17/20 22:59 06:59 14:59 Intake Total 180.317 Output Total 227 Balance -46.683 Intake: Intake, IV Titration 180.317 Amount Oxytocin 30 Units/500 ml 180.317 Ns 30 unit In Saline 1 500ml.bag @ Per Protocol IV .Q0M [facility] Rx#:[id number] Output: Estimated Blood Loss 227 Other: # Voids 2 - Exam Lungs: bilateral: normal Chest: Normal S1, Normal S2 Extremities: Present: normal Abdomen: Present: normal appearance, soft Uterus: Present: normal, firm - Labs Labs: Abnormal Lab Results - Last 24 Hours (Table) 11/17/20 Range/Units 07:09 WBC 15.5 H (3.8-10.6) k/uL RBC 3.76 L (3.80-5.40) m/uL Hct 32.6 L (34.0-46.0) % Neutrophils # 12.7 H (1.3-7.7) k/uL
[2020-11-17] MEDS: SENNOSIDES-DOCUSATE SODIUM 1 EACH TAB PO SCH ×2 (08:45→20:17)
[2020-11-17] MEDS: ACETAMINOPHEN TAB 325 MG TAB PO PRN ×2 (12:32→21:21)
[2020-11-18] MEDS: IBUPROFEN 600 MG TAB PO SCH ×3 (03:32→14:01)
--- NOTE | 2020-11-18 07:58 | P.HPOB ---
History of Present Illness H&P Date: 11/18/20 Chief Complaint: day 2 Patient is a 30-year-old female day 2 baby is in special care nursery. We'll plan discharged home today she will follow up with me in 6 weeks. Prescription for Motrin provided. All questions are answered for her prior to discharge. She feels very well this time and is voicing no complaints. She is an bleeding and voiding without difficulty. On physical exam vital signs are stable and she is afebrile. Heart regular, lungs clear, extremities are without pain. Abdomen soft and lochia is reported to be light. Uterus is firm. Assessment day 2. Plan discharged home follow up with me in 6 weeks. Past Medical History Past Medical History: Seizure Disorder Additional Past Medical History / Comment(s): seizure in Feb 2020 History of Any Multi-Drug Resistant Organisms: None Reported Past Surgical History: Section, No Surgical Hx Reported Additional Past Surgical History / Comment(s): Left wrist ganglion cystectomy Past Anesthesia/Blood Transfusion Reactions: No Reported Reaction Past Psychological History: No Psychological Hx Reported Smoking Status: Former smoker Past Alcohol Use History: Occasional Additional Past Alcohol Use History / Comment(s): Patient states that she quit smoking at start of Past Drug Use History: None Reported - Past Family History Father Family Medical History: No Reported History Additional Family Medical History / Comment(s): Father is alive at age 40 with no major medical problems. Brother(s) Family Medical History: No Reported History Additional Family Medical History / Comment(s): She has 2 brothers with no major medical problems. She has one sister with scoliosis. Patient has 2 sons that are healthy. Mother Family Medical History: No Reported History Additional Family Medical History / Comment(s): Mother is alive at age 40 with history of arthritis and degenerative disc disease. Medications and Allergies Home Medications Medication Instructions Recorded Confirmed Type Pnv No.95/Ferrous Fum/Folic AC 1 tab PO DAILY MDD 1 11/16/20 11/16/20 History [ Multivitamin Tablet] Ibuprofen [Motrin] 600 mg PO Q6HR PRN #30 tab 11/18/20 Rx Allergies Allergy/AdvReac Type Severity Reaction Status Date / Time Penicillins Allergy Severe Rash/Hives Verified 11/16/20 02:59 Exam Osteopathic Statement: *. No significant issues noted on an osteopathic structural exam other than those noted in the History and Physical/Consult. Vital Signs Temp Pulse Resp BP Pulse Ox 11/18/20 00:00 98.6 F 72 17 112/66 98 11/17/20 15:41 98 F 84 15 118/58 11/17/20 08:00 97.7 F 78 16 110/76 Results Result Diagrams: 11/17/20 07:09
[2020-11-18] MEDS: ACETAMINOPHEN TAB 325 MG TAB PO PRN ×2 (09:14→18:06)
[2020-11-18] MEDS: SENNOSIDES-DOCUSATE SODIUM 1 EACH TAB PO SCH (09:14)
[2020-11-18 09:41] VITALS: RESP 16
[2020-11-18 16:28] VITALS: BP 129/74; PULSE 83; TEMP 98.4
== END 2020-11-18 18:00 | disposition home or self-care (01) | DRG 806 ==
LOC: 4FBP 02:35
PROVIDERS: ADMIT Obstetrics & Gynecology; ATTEND Obstetrics & Gynecology
PROC: 3E0R3NZ Introduction of Analgesics, Hypnotics, Sedatives into Spinal Canal, Percutaneous Approach (ICD-10-PCS; principal; 2020-11-16)
PROC: 10E0XZZ Delivery of Products of Conception, External Approach (ICD-10-PCS; principal; 2020-11-16)
PROC: 00HU33Z Insertion of Infusion Device into Spinal Canal, Percutaneous Approach (ICD-10-PCS; principal; 2020-11-16)
DX: O34.219 Maternal care for unspecified type scar from previous cesarean delivery (principal); O99.354 Diseases of the nervous system complicating childbirth; Z37.0 Single live birth; O99.824 Streptococcus B carrier state complicating childbirth; G40.909 Epilepsy, unspecified, not intractable, without status epilepticus; Z3A.37 37 weeks gestation of pregnancy; Z87.891 Personal history of nicotine dependence; O32.6XX0 Maternal care for compound presentation, not applicable or unspecified; Z88.0 Allergy status to penicillin; Z82.61 Family history of arthritis; Z98.890 Other specified postprocedural states
CPT/HCPCS: 85025; 86850; 86900; 86901

== ENCOUNTER 2023-05-19 04:18 | Emergency (ER) | payer OTHER ==
--- NOTE | 2023-05-19 04:21 | ED ---
Female Urogenital HPI - General Stated complaint: Burning sensation possible bladder infection Time Seen by Provider: 05/19/23 04:20 Source: RN notes reviewed, old records reviewed Mode of arrival: ambulatory Limitations: no limitations - History of Present Illness Initial comments: This is a 32-year-old female to the ER for evaluation of bladder spasm abdominal pain dysuria increasing urinary frequency. Denies chance of . No fevers no travels no sick contacts no diarrhea no abdominal pain no other complaints MD Complaint: dysuria, pelvic pain -: days(s) Location: suprapubic Severity: moderate Severity scale (1-10): 6 Quality: sharp, burning Consistency: intermittent Improves with: none Worsens with: urination Patient : No Associated Symptoms: dysuria - Related Data Home Medications Medication Instructions Recorded Confirmed Pnv No.95/Ferrous Fum/Folic AC 1 tab PO DAILY MDD 1 11/16/20 11/16/20 [ Multivitamin Tablet] Previous Rx's Medication Instructions Recorded Ibuprofen [Motrin] 600 mg PO Q6HR PRN #30 tab 11/18/20 Nitrofurantoin Monohyd/M-Cryst 100 mg PO Q12HR #10 cap 05/19/23 [Macrobid] Allergies Allergy/AdvReac Type Severity Reaction Status Date / Time Penicillins Allergy Severe Rash/Hives Verified 05/19/23 04:28 Review of Systems ROS Statement: Those systems with pertinent positive or pertinent negative responses have been documented in the HPI. ROS Other: All systems not noted in ROS Statement are negative. Past Medical History Past Medical History: Seizure Disorder Additional Past Medical History / Comment(s): seizure in Feb 2020 History of Any Multi-Drug Resistant Organisms: None Reported Past Surgical History: Section, No Surgical Hx Reported Additional Past Surgical History / Comment(s): Left wrist ganglion cystectomy Past Anesthesia/Blood Transfusion Reactions: No Reported Reaction Past Psychological History: No Psychological Hx Reported Smoking Status: Former smoker Past Alcohol Use History: Occasional Additional Past Alcohol Use History / Comment(s): Patient states that she quit smoking at start of Past Drug Use History: None Reported - Past Family History Father Family Medical History: No Reported History Additional Family Medical History / Comment(s): Father is alive at age 40 with no major medical problems. Brother(s) Family Medical History: No Reported History Additional Family Medical History / Comment(s): She has 2 brothers with no major medical problems. She has one sister with scoliosis. Patient has 2 sons that are healthy. Mother Family Medical History: No Reported History Additional Family Medical History / Comment(s): Mother is alive at age 40 with history of arthritis and degenerative disc disease. General Exam General appearance: alert, in no apparent distress Head exam: Present: atraumatic, normocephalic, normal inspection Eye exam: Present: normal appearance, PERRL, EOMI. Absent: scleral icterus, conjunctival injection, periorbital swelling ENT exam: Present: normal exam, mucous membranes moist Neck exam: Present: normal inspection. Absent: tenderness, meningismus, lymphadenopathy Respiratory exam: Present: normal lung sounds bilaterally. Absent: respiratory distress, wheezes, rales, rhonchi, stridor Cardiovascular Exam: Present: regular rate, normal rhythm, normal heart sounds. Absent: systolic murmur, diastolic murmur, rubs, gallop, clicks GI/Abdominal exam: Present: soft, normal bowel sounds. Absent: distended, tenderness, guarding, rebound, rigid Extremities exam: Present: normal inspection, full ROM, normal capillary refill. Absent: tenderness, pedal edema, joint swelling, calf tenderness Back exam: Present: normal inspection Neurological exam: Present: alert, oriented X3, CN II-XII intact Psychiatric exam: Present: normal affect, normal mood Skin exam: Present: warm, dry, intact, normal color. Absent: rash Course Vital Signs 05/19/23 05/19/23 04:27 06:42 Temperature 98.2 F Pulse Rate 81 77 Respiratory 18 18 Rate Blood Pressure 115/75 120/66 O2 Sat by Pulse 97 98 Oximetry - Reevaluation(s) Reevaluation #1: 05/19/23 05:02 Medical records reviewed Reevaluation #2: Patient symptoms improved here in the ER Reevaluation #3: Patient is informed of results and questions answered Reevaluation #4: Was pt. sent in by a medical professional or institution (, PA, COMMUNITY COORDINATOR, urgent care, hospital, or detention...) When possible be specific @ -no Did you speak to anyone other than the patient for history (EMS, parent, family, police, friend...)? What history was obtained from this source @ -no Did you review nursing and triage notes (agree or disagree)? Why? @ -agree Are old charts reviewed (outside hosp., previous admission, EMS record, old EKG, old radiological studies, urgent care reports/EKG's, detention records)? Report findings @ -yes Differential Diagnosis (chest pain, altered mental status, abdominal pain women, abdominal pain men, vaginal bleeding, weakness, fever, dyspnea, syncope, headache, dizziness, GI bleed, back pain, seizure, CVA, palpatations, mental health, musculoskeletal)? @ -prior EKG interpreted by me (3pts min.). @ -no X-rays interpreted by me (1pt min.). @ -no CT interpreted by me (1pt min.). @ -no U/S interpreted by me (1pt. min.). @ -no What testing was considered but not performed or refused? (CT, X-rays, U/S, labs)? Why? @ -none What meds were considered but not given or refused? Why? @ -none Did you discuss the management of the patient with other professionals (professionals i.e. , PA, COMMUNITY COORDINATOR, lab, RT, psych nurse, child welfare social worker, tax services specialist, teacher, special forces warrant officer, immigration case worker)? Give summary @ -no Was smoking cessation discussed for >3mins.? @ -no Was critical care preformed (if so, how long)? @ -no Were there social determinants of health that impacted care today? How? (Homelessness, low income, unemployed, alcoholism, drug addiction, transportation, low edu. Level, literacy, decrease access to med. care, longterm, rehab)? @ -none Was there de-escalation of care discussed even if they declined (Discuss DNR or withdrawal of care, Hospice)? DNR status @ -no What co-morbidities impacted this encounter? (DM, HTN, Smoking, COPD, CAD, Cancer, CVA, ARF, Chemo, Hep., AIDS, mental health diagnosis, sleep apnea, morbid obesity)? @ -none Was patient admitted / discharged? Hospital course, mention meds given and route, prescriptions, significant lab abnormalities, going to OR and other pertinent info. @ - 32 female to ER for evaluation is found to have urinary tract infection here in the emergency department. Not , patient has allergy to penicillin and placed on antibiotics and can be discharged home Discharge Undiagnosed new problem with uncertain prognosis? @ -no Drug Therapy requiring intensive monitoring for toxicity (Heparin, Nitro, Insulin, Cardizem)? @ -no Were any procedures done? @ -no Diagnosis/symptom? @ -UTI Acute, or Chronic, or Acute on Chronic? @ -Acute Uncomplicated (without systemic symptoms) or Complicated (systemic symptoms)? @ -Complicated Side effects of treatment? @ -no Exacerbation, Progression, or Severe Exacerbation? @ -exacerbation Poses a threat to life or bodily function? How? (Chest pain, [place], NM, pneumonia, PE, COPD, DKA, ARF, appy, cholecystitis, CVA, Diverticulitis, Homicidal, Suicidal, threat to staff... and all critical care pts) @ -yes with infection Medical Decision Making - Medical Decision Making 32 female to ER for evaluation is found to have urinary tract infection here in the emergency department. Not , patient has allergy to penicillin and placed on antibiotics and can be discharged home - Lab Data Lab Results 05/19/23 05/19/23 Range/Units 05:22 05:22 Urine Color Colorless Urine Appearance Cloudy H (Clear) Urine pH 6.0 (5.0-8.0) Ur Specific [place] 1.003 (1.001-1.035) Urine Protein Negative (Negative) Urine Glucose (UA) Negative (Negative) Urine Ketones Negative (Negative) Urine Blood Moderate H (Negative) Urine Nitrite Negative (Negative) Urine Bilirubin Negative (Negative) Urine Urobilinogen <2.0 (<2.0) mg/dL Ur Leukocyte Esterase Large H (Negative) Urine RBC 5 (0-5) /hpf Urine WBC >182 H (0-5) /hpf Ur Squamous Epith Cells 1 (0-4) /hpf Urine Bacteria Moderate H (None) /hpf Urine Mucus Rare H (None) /hpf Urine HCG, Qual Not Detected (Not Detectd) Disposition Clinical Impression: UTI (urinary tract infection) Disposition: HOME SELF-CARE Condition: Good Instructions (If sedation given, give patient instructions): Urinary Tract Infection in Women (ED) Prescriptions: Nitrofurantoin Monohyd/M-Cryst [Macrobid] 100 mg PO Q12HR #10 cap Is patient prescribed a controlled substance at d/c from ED?: No Referrals: None,Stated [Primary Care Provider] - 1-2 days Time of Disposition: 05:50
[2023-05-19 04:49] VITALS: RESP 18; TEMP 98.2
[2023-05-19] MEDS: IBUPROFEN 600 MG TAB PO STA (04:51)
[2023-05-19] MEDS: ONDANSETRON 4 MG TAB PO STA (04:51)
[2023-05-19] MEDS: traMADol 50 MG TAB PO STA (04:51)
[2023-05-19] MEDS: PHENAZOPYRIDINE 200 MG TAB PO STA (04:54)
[2023-05-19 05:51] LABS: Appearance,Urine Cloudy (Clear); Bacteria,Urine Moderate /hpf; Bilirubin,Urine Negative (Negative); Blood,Urine Moderate (Negative); Color,Urine Colorless; Glucose,Urine (UA) Negative (Negative); Ketones,Urine Negative (Negative); Leukocyte Esterase,Urine Large (Negative); Mucus,Urine Rare /hpf; Nitrite,Urine Negative (Negative); Protein,Urine Negative (Negative); RBC,Urine 5 /hpf (0-5); Specific Gravity,Urine 1.003 (1.001-1.035); Squamous Epithelial Cell,Urine 1 /hpf (0-4); Urobilinogen,Urine <2.0 mg/dL (<2.0); WBC,Urine >182 /hpf (0-5)
[2023-05-19] MEDS: NITROFURANTOIN MONOHYD/M-CRYST 100 MG CAP PO STA (06:39)
[2023-05-19 07:08] VITALS: BP 120/66; PULSE 77
== END 2023-05-19 06:42 | disposition home or self-care (01) ==
LOC: EC 04:18
DX: N39.0 Urinary tract infection, site not specified (principal); Z88.0 Allergy status to penicillin; Z87.891 Personal history of nicotine dependence
CPT/HCPCS: 81001; 81025; 99284

== ENCOUNTER 2023-12-12 15:47 | Emergency (ER) | payer OTHER ==
[2023-12-12 15:58] VITALS: TEMP 97.9
--- NOTE | 2023-12-12 16:34 | ED ---
Headache HPI - General Chief Complaint: Headache Stated Complaint: Headache,Fever,Vomiting Time Seen by Provider: 12/12/23 16:33 Source: patient, RN notes reviewed Mode of arrival: ambulatory Limitations: no limitations - History of Present Illness Initial Comments: 33-year-old female presenting to the ER with a chief complaint of headache, myalgias and fevers. Patient states her children recently tested positive for COVID. She also reports her coworkers have been positive as well. She states when she woke up this morning she felt chilled with a headache. She also is reporting diarrhea, cough, congestion and runny nose. Patient denies any chest pain, difficulty breathing, dizziness, lightheadedness, urinary complaints, abdominal pain, nausea or vomiting. - Related Data Previous Rx's Medication Instructions Recorded Nirmatrelvir/Ritonavir [Paxlovid 1 each PO Q12HR #1 each 12/12/23 300-100 mg Dose Pack] Allergies Allergy/AdvReac Type Severity Reaction Status Date / Time Penicillins Allergy Severe Rash/Hives Verified 12/12/23 16:43 Review of Systems ROS Statement: Those systems with pertinent positive or pertinent negative responses have been documented in the HPI. ROS Other: All systems not noted in ROS Statement are negative. Past Medical History Past Medical History: Seizure Disorder Additional Past Medical History / Comment(s): seizure in Feb 2020 History of Any Multi-Drug Resistant Organisms: None Reported Past Surgical History: Section, No Surgical Hx Reported Additional Past Surgical History / Comment(s): Left wrist ganglion cystectomy Past Anesthesia/Blood Transfusion Reactions: No Reported Reaction Past Psychological History: No Psychological Hx Reported Smoking Status: Former smoker Past Alcohol Use History: Occasional Past Drug Use History: None Reported - Past Family History Father Family Medical History: No Reported History Additional Family Medical History / Comment(s): Father is alive at age 40 with no major medical problems. Brother(s) Family Medical History: No Reported History Additional Family Medical History / Comment(s): She has 2 brothers with no major medical problems. She has one sister with scoliosis. Patient has 2 sons that are healthy. Mother Family Medical History: No Reported History Additional Family Medical History / Comment(s): Mother is alive at age 40 with history of arthritis and degenerative disc disease. General Exam Limitations: no limitations General appearance: alert, in no apparent distress Eye exam: Present: normal appearance, PERRL, EOMI. Absent: scleral icterus, conjunctival injection, periorbital swelling Pupils: Present: normal accommodation ENT exam: Present: normal exam, normal oropharynx, mucous membranes moist Respiratory exam: Present: normal lung sounds bilaterally. Absent: respiratory distress, wheezes, rales, rhonchi, stridor Cardiovascular Exam: Present: regular rate, normal rhythm, normal heart sounds. Absent: systolic murmur, diastolic murmur, rubs, gallop, clicks GI/Abdominal exam: Present: soft, normal bowel sounds. Absent: distended, tenderness, guarding, rebound, rigid Extremities exam: Present: normal inspection, full ROM, normal capillary refill. Absent: tenderness, pedal edema, joint swelling, calf tenderness Neurological exam: Present: alert, oriented X3, CN II-XII intact Skin exam: Present: warm, dry, intact, normal color. Absent: rash Course Vital Signs 12/12/23 12/12/23 15:55 19:00 Temperature 97.9 F Pulse Rate 90 77 Respiratory 22 18 Rate Blood Pressure 123/65 95/52 O2 Sat by Pulse 99 100 Oximetry Medical Decision Making - Medical Decision Making Was pt. sent in by a medical professional or institution (, PA, AIR QUALITY MANAGER, urgent care, hospital, or [facility]...) When possible be specific @ -No Did you speak to anyone other than the patient for history (EMS, parent, family, police, friend...)? What history was obtained from this source @ -No Did you review nursing and triage notes (agree or disagree)? Why? @ -I reviewed and agree with nursing and triage notes Were old charts reviewed (outside hosp., previous admission, EMS record, old EKG, old radiological studies, urgent care reports/EKG's, [facility] records)? Report findings @ -No old charts were reviewed Differential Diagnosis (chest pain, altered mental status, abdominal pain women, abdominal pain men, vaginal bleeding, weakness, fever, dyspnea, syncope, headache, dizziness, GI bleed, back pain, seizure, CVA, palpatations, mental health, musculoskeletal)? @ -COVID, RSV, influenza, viral sinusitis, pneumonia this list is not meant to be all-inclusive EKG interpreted by me (3pts min.). @ -Not done X-rays interpreted by me (1pt min.). @ -CXR negative for acute cardiopulmonary process. CT interpreted by me (1pt min.). @ -None done U/S interpreted by me (1pt. min.). @ -None done What testing was considered but not performed or refused? (CT, X-rays, U/S, labs)? Why? @ -None What meds were considered but not given or refused? Why? @ -None Did you discuss the management of the patient with other professionals (professionals i.e. , PA, AIR QUALITY MANAGER, lab, RT, psych nurse, renal social worker, annealing oven operator, t eacher, correction officer supervisor, sample case porter)? Give summary @ -No Was smoking cessation discussed for >3mins.? @ -No Was critical care preformed (if so, how long)? @ -No Were there social determinants of health that impacted care today? How? (Homelessness, low income, unemployed, alcoholism, drug addiction, transportation, low edu. Level, literacy, decrease access to med. care, long-term, rehab)? @ -No Was there de-escalation of care discussed even if they declined (Discuss DNR or withdrawal of care, Hospice)? DNR status @ -No What co-morbidities impacted this encounter? (DM, HTN, Smoking, COPD, CAD, Cancer, CVA, ARF, Chemo, Hep., AIDS, mental health diagnosis, sleep apnea, morbid obesity)? @ -None Was patient admitted / discharged? Hospital course, mention meds given and route, prescriptions, significant lab abnormalities, going to OR and other pertinent info. @ -Discharged. 33 year old female presented to the ER with a chief complaint of a headache and myalgias. History physical exam completed. Vitals unremarkable. Patient no signs of acute distress nontoxic-appearing. Exam benign. Viral swabs and chest x-ray will be obtained. Symptomatic treatment in the ER. Patient is agreeable with plan. COVID-positive. Chest x-ray negative. Patient received p.o. Tylenol, IV Solu-Medrol, Benadryl and IV fluids with improvement of symptoms. Paxlovid prescribed. Strict return parameters discussed. Patient discharged in stable condition with follow-up to PCP. Patient verbally expressed understanding and agreement with care plan. Case discussed with ED attending, Dr. Vigil. Undiagnosed new problem with uncertain prognosis? @ -No Drug Therapy requiring intensive monitoring for toxicity (Heparin, Nitro, Insulin, Cardizem)? @ -No Were any procedures done? @ -No Diagnosis/symptom? @ -COVID-19/viral sinusitis Acute, or Chronic, or Acute on Chronic? @ -Acute Uncomplicated (without systemic symptoms) or Complicated (systemic symptoms)? @ -Uncomplicated Side effects of treatment? @ -No Exacerbation, Progression, or Severe Exacerbation? @ -No Poses a threat to life or bodily function? How? (Chest pain, USA, DC, pneumonia, PE, COPD, DKA, ARF, appy, cholecystitis, CVA, Diverticulitis, Homicidal, Suicidal, threat to staff... and all critical care pts) @ -No - Lab Data Lab Results 12/12/23 Range/Units 16:45 Influenza Type A (PCR) Not Detected (Not Detectd) Influenza Type B (PCR) Not Detected (Not Detectd) RSV (PCR) Not Detected (Not Detectd) SARS-CoV-2 (PCR) Detected A (Not Detectd) - Radiology Data Radiology results: report reviewed, image reviewed Disposition Clinical Impression: COVID-19, Acute viral sinusitis Disposition: HOME SELF-CARE Condition: Stable Additional Instructions: He will take [id number] ibuprofen and Tylenol for pain control. Follow-up with PCP. Return to the ER for any new or worsening concerns. Prescriptions: Nirmatrelvir/Ritonavir [Paxlovid 300-100 mg Dose Pack] 1 each PO Q12HR #1 each Is patient prescribed a controlled substance at d/c from ED?: No Referrals: Lillian Tello MD [Primary Care Provider] - 1-2 days Time of Disposition: 17:29
[2023-12-12] MEDS: ACETAMINOPHEN TAB 500 MG TAB PO STA (16:43)
--- NOTE | 2023-12-12 17:03 | XR ---
EXAMINATION TYPE: XR chest 2V DATE OF EXAM: 12/12/2023 4:47 PM CLINICAL INDICATION: Female, 33 years old with history of cough; COMPARISON: Chest radiographs from 08/22/2017 TECHNIQUE: XR chest 2V Frontal view of the chest. FINDINGS: Lungs/Pleura: There is no evidence of pleural effusion, focal consolidation, or pneumothorax. Pulmonary vascularity: Unremarkable. Heart/mediastinum: Cardiomediastinal silhouette is unremarkable. Musculoskeletal: No acute osseous pathology. IMPRESSION: No acute cardiopulmonary disease/process. [facility], Workstation: [id number], 12/12/2023 5:01 PM
[2023-12-12] MEDS: SODIUM CHLORIDE 0.9% 1,000 ML IV STA (17:49)
[2023-12-12] MEDS: methylPREDNISolone SOD SUCCI 125 MG/2 ML VIAL IV STA (17:52)
[2023-12-12] MEDS: ONDANSETRON 4 MG/2 ML VIAL IVP STA (17:52)
[2023-12-12] MEDS: diphenhydrAMINE 50 MG/ML 1 ML VIAL IVP STA (17:53)
[2023-12-12 19:02] VITALS: BP 95/52; PULSE 77; RESP 18
== END 2023-12-12 19:02 | disposition home or self-care (01) ==
LOC: EC 15:47
DX: U07.1 COVID-19 (principal); J01.90 Acute sinusitis, unspecified; Z88.0 Allergy status to penicillin; Z87.891 Personal history of nicotine dependence
CPT/HCPCS: 87636; 71046; 99284; 96374; 96375 ×2; 96361; J1200; J2405; J2919